=== PATIENT | male | born 1930 | race Caucasian/White ===

== ENCOUNTER 2016-06-06 20:09 | Inpatient (IN) | payer MEDICARE, BC ==
[~2016-06-06] VITALS: Ht 172.7 cm; Wt 76.0 kg
[2016-06-06] MEDS ORDERED: ALBUTEROL 0.083% (NEB) 2.5 MG/3 ML AMP HHN STA (20:38)
[2016-06-06] MEDS ORDERED: CEFEPIME 1GM/50 ML (PMX) 50 ML IVPB STA (20:38)
--- NOTE | 2016-06-06 21:00 | ERD ---
ER Documentation Chief Complaint Date/Time DATE: 06/06/16 TIME: 20:58 Chief Complaint Pt BIB RA zachery Proctor for pnuemonia. HPI Patient is an 85-year-old male who is vent dependent for chronic respiratory failure following aspiration pneumonia 3 months ago. The patient presents to the ER for gradual onset, mild to moderate, progressive shortness of breath over the last 3-4 days. The patient had a chest x-ray 2 days ago which was read yesterday as showing multifocal pneumonia. Patient denies fever, chest pain. He does report increased swelling to the lower extremities. He does state that he feels the need to cough but is not able to. Patient was treated with Levaquin by Dr. Colby, but family wanted the patient transferred to the ER for further evaluation. Patient has end-stage renal disease, last hemodialysis was last night. ROS All systems reviewed and are negative except as per history of present illness. Medications Home Meds Reported Medications Cholecalciferol* (Vitamin D3*) 1,000 Unit Tablet, 1000 UNIT GTB DAILY, TAB 06/06/16 Ascorbic Acid (Vitamin C) 250 Mg Tab, 250 MG GTB DAILY, TAB 06/06/16 Tramadol Hcl* (Ultram*) 50 Mg Tablet, 50 MG GTB Q4H Y for PAIN, TAB FOR PAIN LEVEL 8-10 AND PRIOR TO WOUND CARE 06/06/16 Sertraline Hcl* (Sertraline Hcl*) 25 Mg Tablet, 25 MG GTB QHS, #30 TAB 06/06/16 Multivit/Ca Carb/B Cmplx/Fa* (Natalia-Nuno*) 1 Tab Tab, 1 TAB GTB DAILY, TAB 06/06/16 Protein Supplement (Promod) 946 Ml Liquid, 30 ML GTB TID 06/06/16 Chlorhexidine Gluconate (Peridex) 473 Ml Mouthwash, 15 ML MM Q12H, BOTTLE 06/06/16 Ondansetron Hcl* (Ondansetron Hcl*) 4 Mg Tablet, 4 MG GTB Q4H Y for NAUSEA AND OR VOMITING, TAB 06/06/16 Polyethylene Glycol* (Miralax*) 17 Gm Powd.pack, 17 GM GTB DAILY, #30 PACKET 06/06/16 Metoprolol Tartrate* (Lopressor*) 25 Mg Tab, 12.5 MG GTB BID, #60 TAB HOLD IF SBP<110 OR HR<60 06/06/16 Melatonin (Melatonin) 5 Mg Tablet, 5 MG GTB HS, TAB 06/06/16 Hydrocodone Bit-Acetaminophen* (Lortab* Liq) 7.5 Mg-325 Mg/15 Ml Solution, 15 ML GTB Q6H Y for PAIN, ML 06/06/16 Lorazepam* (Lorazepam*) 0.5 Mg Tablet, 0.5 MG GTB Q12H Y for ANXIETY, TAB 06/06/16 Levofloxacin* (Levaquin*) 500 Mg Tablet, 500 MG GTB DAILY, TAB FOR 7 DAYS 06/07-06/1406/06/16 Lansoprazole* (Lansoprazole*) 30 Mg Capsule.dr, 30 MG GTB BID, CAP 06/06/16 Lactulose* (Lactulose*) 20 Gm/30 Ml Solution, 20 GM GTB Q24H, ML 06/06/16 Folic Acid (Fa-8) 0.8 Mg Tablet, 0.8 MG GTB DAILY, TAB 06/06/16 Ferrous Sulfate (Ferrous Sulfate) 300 Mg/5 Ml Liquid, 300 MG GTB DAILY 06/06/16 Ipratropium-Albuterol (Ipratropium-Albuterol) 0.5-3 Mg/3 Ml Ampul.neb, 3 ML INHALATION Q2H Y for PRN, #30 VIAL AND Q6H FOR SOB 06/06/16 Doxazosin Mesylate* (Doxazosin Mesylate*) 1 Mg Tablet, 1 MG GTB HS, TAB 06/06/16 Cyanocobalamin* (Vitamin B12*) 500 Mcg Tab, 1000 MCG GTB DAILY, TAB 06/06/16 Bumetanide* (Bumetanide*) 1 Mg Tablet, 1 MG GTB DAILY, TAB 06/06/16 Budesonide* (Budesonide*) 0.5 Mg/2 Ml Ampul.neb, 0.5 MG INHALATION BID, AMP 06/06/16 Brimonidine Tartrate* (Brimonidine Tartrate*) 0.15%-10ML Drop Opht, 1 DROP BOTH EYES BID, #1 EA 06/06/16 Amiodarone Hcl* (Amiodarone Hcl*) 200 Mg Tablet, 200 MG GTB DAILY, #30 TAB HOLD IF HR<60 3/28/17 Acetaminophen (MAPAP) 325 Mg/10.15 Ml Solution, 650 MG GTB Q4H Y for MILD PAIN LEVEL 1-3 FOR TEMP>101 06/06/16 Allergies Allergies: Coded Allergies: No Known Allergy (Unverified , 06/06/16) PMhx/Soc Past medical history: End-stage renal disease, chronic respiratory failure Past surgical history: Tracheostomy, G-tube Social history: No history of tobacco, no current alcohol FmHx Family History: No coronary disease, No diabetes Physical Exam Vitals Vital Signs Date Time Temp Pulse Resp B/P Pulse Ox O2 Delivery O2 Flow Rate FiO2 06/06/16 22:34 65 14 106/62 100 Room Air 06/06/16 20:45 90 16 94/60 100 Mechanical Ventilator 06/06/16 20:38 92 19 99 35 06/06/16 20:25 99.3 94 22 108/58 100 Physical Exam Const: Alert, no acute distress Head: Atraumatic Eyes: Normal Conjunctiva, no pallor or icterus ENT: Normal External Ears, Nose and Mouth. Moist mucous membranes Neck: Full range of motion. No JVD. No meningismus. Resp: Scattered bilateral rales, no wheezes Cardio: Regular rate and rhythm, no murmurs Abd: Soft, non tender, non distended. No pulsatile mass Skin: No petechiae or rashes Back: No midline or flank tenderness Ext: No cyanosis. Anasarca, with 3+ pitting edema to the abdominal wall. Neur: Awake and alert, cranial nerves II through XII intact bilaterally, strength and sensation intact in 4 extremities Psych: Normal Mood and Affect Result Diagram: 06/06/16209906/06/16 2100 Results 24 hrs Laboratory Tests Test 06/06/16 21:00 White Blood Count 7.010^3/ul Red Blood Count 2.4510^6/ul Hemoglobin 7.6g/dl Hematocrit 25.2% Mean Corpuscular Volume 102.9fl Mean Corpuscular Hemoglobin 31.0pg Mean Corpuscular Hemoglobin Concent 30.2g/dl Red Cell Distribution Width 19.3% Platelet Count 97188^3/UL Mean Platelet Volume 11.3fl Sodium Level 138mmol/L Potassium Level 3.4mmol/L Chloride Level 107mmol/L Carbon Dioxide Level 24mmol/L Anion Gap 10 Blood Urea Nitrogen 41mg/dl Creatinine 0.90mg/dl Glucose Level 91mg/dl Lactic Acid Level 0.6mmol/L Calcium Level 9.4mg/dl Total Bilirubin 0.0mg/dl Direct Bilirubin 0.00mg/dl Indirect Bilirubin 0.0mg/dl Aspartate Amino Transf (AST/SGOT) 34IU/L Alanine Aminotransferase (ALT/SGPT) 45IU/L Alkaline Phosphatase 231IU/L B-Type Natriuretic Peptide 77115HF/ML Total Protein 6.9g/dl Albumin 2.7g/dl Globulin 4.20g/dl Albumin/Globulin Ratio 0.64 Current Medications Medications (Trade) Dose Ordered Sig/Lata Route PRN Reason Start Time Stop Time Status Last Admin Dose Admin Albuterol 5 mg 5 mg ONCE STAT HHN 06/06/16 20:38 06/06/16 20:40 DC 06/06/16 21:35 Cefepime HCl (Maxipime 1gm/50 ml (Pmx)) 50 ml @ 100 mls/hr ONCE STAT IVPB 06/06/16 20:38 06/06/16 21:07 DC 06/06/16 21:34 Ondansetron HCl (Zofran Inj) 4 mg ER BRIDGE PRN IV NAUSEA AND/OR VOMITING 06/06/16 23:00 06/07/16 22:59 Acetaminophen (Tylenol Tab) 650 mg ER BRIDGE PRN PO MILD PAIN/FEVER 06/06/16 23:00 06/07/16 22:59 Procedures/MDM Chest x-ray:IMPRESSION: 1. Radiographic worsening of congestive heart failure and pulmonary edema pattern compared to 05/17/2016. 2. Interval increase in right larger than left pleural effusions. 3. Tracheostomy and right-sided Perma-Cath remain in good positions. 4. Aortic atherosclerosis is present. MDM: Patient with end-stage renal disease and chronic respiratory failure on ventilator set to ER for new pneumonia. Patient has not had any fever recorded , but has low-grade temp in the ER. His main symptom is increased shortness of breath and oxygen requirement. Patient has signs of anasarca on exam, and it has end-stage renal disease causing fluid retention. Chest x-ray shows pleural effusions and pulmonary edema, and cannot exclude concurrent pneumonia. Patient had received Levaquin prior to ER arrival. Given cefepime for double coverage of Pseudomonas in the setting of possible ventilator associated pneumonia. Patient found to have anemia with hemoglobin of 7.6, due to end- stage renal disease. I believe the patient will benefit from additional dialysis and transfusion of 1 unit of blood. Lactic acid is not elevated, and there are no signs of sepsis. Blood cultures were sent. Case discussed with Dr. Harris, who will admit patient for further workup and treatment. Departure Diagnosis: Primary Impression: Anasarca Additional Impressions: End stage renal disease Pulmonary edema with congestive heart failure Chronic respiratory failure Ventilator associated pneumonia Pleural effusion Condition: Stable SHAI STROUD MD Jun 06, 2016 21:00
[2016-06-06 21:14] LABS: ADD SCAN DIFF NO
[2016-06-06 21:21] LABS: ABNORMAL IP MESSAGE 1; HEMATOCRIT 25.2 % (42.0-52.0); HEMOGLOBIN 7.6 g/dl (14.0-18.0); MEAN CORPUSCULAR HGB CONC 30.2 g/dl (32.0-37.0); MEAN CORPUSCULAR VOLUME 102.9 fl (82.0-101.0); MEAN PLATELET VOLUME 11.3 fl (7.4-10.4); PLATELET COUNT 119 10^3/UL (140-415); RED BLOOD COUNT 2.45 10^6/ul (4.70-6.10); RED CELL DISTRIBUTION WIDTH 19.3 % (11.5-14.5)
[2016-06-06 21:37] LABS: ALBUMIN 2.7 g/dl (3.3-4.9)
[2016-06-06 21:38] LABS: POTASSIUM 3.4 mmol/L (3.5-5.1)
[2016-06-06] MEDS ORDERED: ACET325S17 GTB (21:39)
[2016-06-06 21:40] LABS: ALBUMIN/GLOBULIN RATIO 0.64; CREATININE 0.9 mg/dl (0.61-1.24); TOTAL PROTEIN 6.9 g/dl (6.1-8.1)
[2016-06-06] MEDS ORDERED: BRIM10DR12 BOTH EYES (21:40)
[2016-06-06] MEDS ORDERED: AMIO200T2 GTB (21:40)
[2016-06-06 21:41] LABS: CALCIUM 9.4 mg/dl (8.4-10.2)
[2016-06-06] MEDS ORDERED: BUME1TAB18 GTB (21:41)
[2016-06-06] MEDS ORDERED: BUDE0.5A INHALATION (21:41)
[2016-06-06] MEDS ORDERED: CYAN500T46 GTB (21:42)
[2016-06-06] MEDS ORDERED: IPRA3AMP INHALATION (21:43)
[2016-06-06] MEDS ORDERED: DOXA1TAB GTB (21:43)
[2016-06-06] MEDS ORDERED: UDFER GTB (21:45)
[2016-06-06] MEDS ORDERED: FOL8 GTB (21:48)
--- NOTE | 2016-06-06 21:48 | RADRPT ---
PROCEDURE: XR Chest. CLINICAL INDICATION: Shortness of breath. TECHNIQUE: Portable AP semi supine view of the chest was obtained. COMPARISON: 05/17/2016 FINDINGS: The cardiomediastinal silhouette is mildly enlarged. Tracheostomy and right-sided Perma-Cath remain in good positions. Diffuse pulmonary edema pattern asymmetrically effect in the right greater than left lung is slightly worse. Right large left pleural effusions have slightly increased since the prior exam. Demineralization is again noted without evidence of acute osseous abnormality. Calcific ation of the aorta is again noted RPTAT:HJJR IMPRESSION: 1. Radiographic worsening of congestive heart failure and pulmonary edema pattern compared to 05/17. 2. Interval increase in right larger than left pleural effusions. 3. Tracheostomy and right-sided Perma-Cath remain in good positions. 4. Aortic atherosclerosis is present. Physician Ama Date Time Electronically viewed and signed by Physician Ama on 06/06/2016 21:48 JR/
[2016-06-06] MEDS ORDERED: LACT20SO2 GTB (21:49)
[2016-06-06] MEDS ORDERED: LANS30CA GTB (21:50)
[2016-06-06] MEDS ORDERED: LEVO500T72 GTB (21:51)
[2016-06-06] MEDS ORDERED: LORA0.5T GTB (21:52)
[2016-06-06] MEDS ORDERED: HYDR15SO8 GTB (21:53)
[2016-06-06] MEDS ORDERED: MELA5TAB4 GTB (21:54)
[2016-06-06] MEDS ORDERED: METO-448 GTB (21:55)
[2016-06-06] MEDS ORDERED: POLY17PO6 GTB (21:55)
[2016-06-06] MEDS ORDERED: ONDA4TAB95 GTB (21:56)
[2016-06-06] MEDS ORDERED: CHLO473M4 MM (21:57)
[2016-06-06] MEDS ORDERED: PROT946L GTB (21:58)
[2016-06-06] MEDS ORDERED: SERT25TA83 GTB (21:59)
[2016-06-06] MEDS ORDERED: NEPH GTB (21:59)
[2016-06-06] MEDS ORDERED: TRAM-40 GTB (22:01)
[2016-06-06] MEDS ORDERED: ASC250 GTB (22:02)
[2016-06-06] MEDS ORDERED: CHOL100062 GTB (22:03)
[2016-06-06 22:52] LABS: EOSINOPHILS # 0.2 10^3/ul (0.0-0.5); LYMPHOCYTES # 0.5 10^3/ul (0.8-2.9); MONOCYTE # 0.6 10^3/ul (0.3-0.9); NEUTROPHIL # 5.7 10^3/ul (1.6-7.5); PLATELET ESTIMATE PLT APPEAR DECREASED
[2016-06-06] MEDS ORDERED: ACETAMINOPHEN 325 MG TAB PO PRN (23:00)
[2016-06-06] MEDS ORDERED: ONDANSETRON 4 MG INJ IV PRN (23:00)
[2016-06-07] MEDS ORDERED: ONDANSETRON 4 MG TAB GTB PRN (10:00)
[2016-06-07] MEDS ORDERED: POTASSIUM CHLORIDE 20 MEQ POWDER FOR ORAL SOLN GTB ONE (10:00)
[2016-06-07] MEDS ORDERED: ACETAMINOPHEN 325/HYDROC 7.5 15 ML CUP GTB PRN (10:00)
[2016-06-07] MEDS ORDERED: ALBUTEROL/IPRATROPIUM (NEB) 3 ML AMP NEB PRN (10:00)
--- NOTE | 2016-06-07 10:53 | CONS ---
DATE OF ADMISSION: 06/06/2016 DATE OF CONSULTATION: 06/07/2016 REFERRING PHYSICIAN: Dr. Aranda. REASON FOR CONSULTATION: Atrial fibrillation. CHIEF COMPLAINT: Worsening pneumonia, respiratory failure. HISTORY OF PRESENT ILLNESS: Thank you for this referral. History obtained from the extensive revie w of the old chart, discussion with physician and staff. The patient also known to me from previous admission to different hospital, [facility]. This unfortunate 85-year-old gentleman with hist ory of respiratory failure, status post tracheostomy, on the vent, history of paroxysmal atrial fibr illation that has become persistent atrial fibrillation, previously on anticoagulation, but currentl y off of it due to bleeding who has had worsening and increasing shortness of breath over the past f ew days. The patient's chest x-ray showed pneumonia and he has been started on Levaquin; however, h as failed outpatient/[facility] antibiotic and has been transferred to the emergency room for furt her workup or antibiotic. The patient denies any chest pain or pressure to me. Denies any palpitat ions to me. Currently on the vent and can discuss limited information to me. The patient has been coughing and has increasing phlegm production, apparently. No chest pain or pressure, palpitation. PAST MEDICAL HISTORY: History of hypoxemic respiratory failure, status post tracheostomy, vent depe ndent, history of COPD, history of mild aortic stenosis, atrial fibrillation previously paroxysmal, currently has become persistent, history of GI bleed, hypertension, and renal failure on dialysis. MEDICATIONS: Prior to admission her medication reconciliation was personally and extensively review ed. PAST SURGICAL HISTORY: Status post dialysis access placement, tracheostomy, G-tube placement. SOCIAL HISTORY: Does not smoke or drink at this point. Previously has been a smoker, apparently. FAMILY HISTORY: No reported coronary artery disease. ALLERGIES: NO REPORTED DRUG ALLERGIES. REVIEW OF SYSTEMS: The patient is bed bound on the trach, on the vent. Otherwise negative except f or above-mentioned. PHYSICAL EXAMINATION: VITAL SIGNS: Temperature 98.3, heart rate of 92, blood pressure 196/56, respiratory rate of 16. HEENT: Normocephalic, atraumatic. Saturating 100%. Thin, cachectic gentleman. EYES: Pupils are equal and round. NECK: Status post tracheostomy, on the vent. CARDIOVASCULAR: Irregularly irregular. Systolic ejection murmur. PULMONARY: Mild rhonchi, diffuse. GASTROINTESTINAL: Soft, status post PEG placement. No rebound, no guarding. EXTREMITIES: With trivial lower extremity edema. NEUROLOGIC: Awake, responds appropriately. PSYCHIATRIC: Appears to be calm but pleasant. DERMATOLOGIC: Diffuse ecchymosis throughout the body noted. PSYCHIATRIC: Calm and very pleasant. LABORATORY: WBC of 7, hemoglobin 7.6, platelet of 119. Sodium 138, potassium 3.4, BUN of 41, creat inine 0.9, glucose of 91, proBNP of 13,600. Albumin is 2.6. TSH in April was 1.23 per review of the old chart. Most recent OB stool was positive on 04/29/2016. Digoxin level on the 2nd was 0.7. IMAGING: Chest x-ray last night read by radiologist showed worsening of congestive heart failure, p ulmonary edema pattern compared to before, interval increase the right larger than left pleural effu henok. Review of the old chart again showed echocardiogram on 04/25/2016 and showed ejection fraction of 60 %. Trace MR, trace aortic insufficiency. Aortic valve area was calculated at 2.2 cm2. Dilated IVC . PA pressure of 52 mmHg. ASSESSMENT AND PLAN: 1. Hypoxemia respiratory failure, status post tracheostomy, vent dependent. 2. Possible pneumonia. 3. Congestive heart failure/fluid overload secondary to diastolic dysfunction. 4. Renal failure on dialysis. 5. Atrial fibrillation, currently heart rate under good control. 6. Severe anemia. 7. History of OB positive stool, unable to anticoagulate. 8. History of hypertension, currently hypotensive. 9. Renal failure on dialysis. 10. Malnutrition. 11. Dysphagia, status post PEG placement. RECOMMENDATIONS: 1. Vent support will be continued. Antibiotic is managed as per pulmonary and internal medicine. We will continue the amiodarone for now. 2. Diuresis as per renal given his renal failure. 3. Beta brunilda as tolerated will be continued. I will check a digoxin level tomorrow and as neede d will be given an extra dose of digoxin to control the heart rate better. 4. Anticoagulation is still on hold due to concern about bleeding. I am going to order a stool gua iac as well to rule out any bleeding signs. 5. Will monitor closely on the telemetry. We will continue to follow along with you. Dictated By: TYREL RODRIGUEZ MD AV/ANA Conf#: [id number] DID#: [id number] CC: MARINO ARANDA DO;*[facility]*
--- NOTE | 2016-06-07 11:02 | HP ---
DATE OF ADMISSION: 06/06/2016 CHIEF COMPLAINT: Pneumonia, volume overload. HISTORY OF PRESENT ILLNESS: This is an 85-year-old male with a past medical history of dependent re spiratory failure, history of end-stage renal disease on hemodialysis, history of hypertension, hist ory of BPH, history of CHF, coronary artery disease, history of AFib, who presents to [facility] from halfway facility due to progressive shortness of breath over the last 2 to 3 days. The patient previously was admitted to [facility] for over 1 month. At t hat time, the patient was being treated for aspiration pneumonia and on undergoing vent management. He was eventually discharged back to halfway facility approximately 2 to 3 weeks ago. The patient now presents with worsening shortness of breath as stated above. The patient had a chest x -ray 2 days ago at his [facility] showed multifocal pneumonia. He has been treated with antibiotic therapy but failed outpatient evaluation. The patient also noted to have worsening lowe r extremity edema as a result was brought into the [facility] for evaluation. In the emergency room, the patient had a chest x-ray which showed findings of worsening CHF, pulmonary edema, right pleural effusion. The patient in the emergency room was given IV antibiotics. There h ave been no reports of any hemoptysis, hemetemesis or hematochezia. No other acute events noted. PAST MEDICAL HISTORY: As stated above, history of end-stage renal disease, history of ventilator de pendent respiratory failure, history of CHF, history of chronic disease, history of arrhythmia, hist ory of encephalopathy, anxiety disorder, BPH. ALLERGIES: NO KNOWN DRUG ALLERGIES. PAST SURGICAL HISTORY: Status post trach, status post PEG, status post PermCath placement. SOCIAL HISTORY: No alcohol or drug use. Lives in a subacute facility. FAMILY HISTORY: No family history of kidney disease or heart disease. MEDICATIONS: Reviewed and reconciled. REVIEW OF SYSTEMS: Unable to do adequate review of systems. Patient's pertinent and positives state s in HPI, otherwise the site. PHYSICAL EXAMINATION: VITAL SIGNS: Blood pressure 101/60, respirations 16, pulse 90, temperature 98.3. HEENT: Head is normocephalic. NECK: Shows trach. HEART: Irregularly irregular. LUNGS: Show diminished breath sounds at the base. Positive crackles and rhonchi. CHEST: Positive Perm-A-Cath. ABDOMEN: Soft, nontender to palpation. Positive PEG. EXTREMITIES: Negative for clubbing, cyanosis. Positive edema. DERMATOLOGIC: No rashes. MUSCULOSKELETAL: Positive wound. NEUROLOGIC: No obvious focal deficits, although, exam is somewhat limited due to lack of patient co operation. LABORATORY DATA: Shows sodium 138, potassium 2.4, chloride 107, BUN 41, creatinine 0.90, glucose 23 1. BNP 13,000. White count 7.9, hemoglobin 7.6, hematocrit 25.2, platelet count 190. IMAGING STUDIES: As stated in HPI. ASSESSMENT AND PLAN: This is an 85-year-old male who presents with: 1. Acute systolic, diastolic heart failure. Etiology is secondary to end-stage renal disease. Mo n at this point is to intensify patient's dialysis. We will dialyze daily for volume removal. We w ill also place a cardiology consult with Dr. St for evaluation. Monitor closely. 2. End-stage renal disease. The patient on dialysis Sunday, Sunday, Sunday. Anticipate dialysi s today for 3 hours, 4K bath, calcium 2.5, ultrafiltrate as tolerated. 3. Possible healthcare-associated pneumonia. The patient is currently on Levaquin received 1 dose of cefepime. We will place an ID consult with Dr. Mcgrath for evaluation. We will check blood cultu res, calcitonin level procalcitonin level, lactic acid level and monitor closely. 4. Anemia, likely of chronic disease. We will check an iron panel, stool occult blood. We will gi ve Epogen with hemodialysis. Monitor H and H levels, transfuse as needed. 5. Mineral bone disorder. We will monitor calcium and phosphorus levels. Defer phosphorus binders at this time. 6. History of hypertension. Patient is currently hypotensive to normotensive. Will monitor closel y and will monitor hemodynamics with ultrafiltration. 7. Atrial fibrillation, currently rate controlled. Continue current medical management and follow up with cardiology. 8. Acute on chronic encephalopathy, etiology toxic metabolic. Continue to monitor. 9. Hypokalemia, replete potassium chloride. 10. Decubitus wound. Place wound care consult for evaluation. 11. Ventilator dependent respiratory failure. Vent settings reviewed. We will place a pulmonary c onsult for evaluation, consider checking an ABG. 12. Anxiety disorder. Continue Ativan. 13. Gastrointestinal and deep venous thrombosis prophylaxis. Continue with Prevacid and sequential leg squeezers. 14. Depression. Continue Zoloft. Dictated By: MARINO MATHUR/ANA Conf#: [id number] DID#: [id number]
--- NOTE | 2016-06-07 11:05 | CONS ---
Date/Time of Note Date/Time of Note DATE: 06/07/16 TIME: 11:00 Assessment/Plan Assessment/Plan Additional Assessment/Plan Ventilator settings; AC of 12, tidal volume 500, PEEP of 5, 35% FiO2. Chest x-ray was reviewed from yesterday which is showing bilateral pneumonia more pronounced in the right lung. Possibly alleviate some element of pulmonary edema. Assessment and recommendations; next 1. Patient admitted for bilateral pneumonia possibly some element of pulmonary edema as well. 2. Chronic respiratory failure, ventilator dependent. 3. Chronic atrial fibrillation. 4. End-stage renal disease on hemodialysis. Continue current treatment. Patient is on an optimal treatment regimen. Continue current antibiotics. Obtain follow-up chest x-ray in 48 hours. Consultation Date/Type/Reason Admit Date/Time Date of Consultation: Jun 07, 2016 Type of Consultation: Pulmonary/critical care Reason for Consultation Pulmonary consultation obtained for evaluation of chronic respiratory failure, patient admitted for bilateral pneumonia. Next History presenting; patient is a 85-year-old white male who is a resident of [facility] the patient was sent over to the ER yesterday with complaints of being short of breath. Upon evaluation a chest x-ray was done which is showing severe bilateral pneumonia possibly with some element of congestive heart failure. By the time I saw the patient and ER the patient is quite awake alert despite being on ventilator able to move all 4 extremities and was able to communicate by hand movements and lip movements. Denies any further shortness of breath. Any chest pain. Any nausea or vomiting. Also denies any abdominal pain. Past medical history; 1. Patient with history of chronic respiratory failure, ventilator dependent. 2. Chronic renal failure on hemodialysis. 3. History of atrial fibrillation. 4. Anemia. 5. G-tube placement. 6. History of tracheostomy. Medications; were reviewed. Allergies; are none. Social history, family history, occupational history is noncontributory. Review of systems; limited review of systems could be obtained. Patient denies any headache, any chest pain, shortness of breath is improving. Denies any chest pain, fever, abdominal pain, vomiting. General exam; elderly male, on ventilator via tracheostomy awake and alert currently in no distress. Social History Smoking Status: Never smoker Exam/Review of Systems Vital Signs Vitals Vital Signs Date Time Temp Pulse Resp B/P Pulse Ox O2 Delivery O2 Flow Rate FiO2 06/07/16 10:33 98.3 89 16 110/54 100 Mechanical Ventilator 06/07/16 05:50 35 Exam HEENT examination; supple neck, positive JVD. No lymphadenopathy. Midline trachea. No thyromegaly. Patient is edentulous. Bilateral cataracts. No neck masses. No lymphadenopathy. No thyromegaly. Tracheostomy in place with clean insertion site. Chest examination; diminished but clear breath sounds bilaterally. S1-S2 audible, no murmurs irregular rhythm. Abdomen examination; soft, no organomegaly. Nontender. G-tube in place. Bowel sounds audible. Extremity examination; trace upper extremity edema bilaterally multiple ecchymoses are present in all 4 extremities. PROGRAM SERVICES ASSISTANT examination [facility]: Patient awake alert follows simple commands and moves all 4 extremities. Results Result Diagram: 06/06/16 2100 06/06/16 2100 Results 24 hrs Laboratory Tests Test 06/06/16 21:00 White Blood Count 7.0 Red Blood Count 2.45 L Hemoglobin 7.6 L Hematocrit 25.2 L Mean Corpuscular Volume 102.9 H Mean Corpuscular Hemoglobin 31.0 Mean Corpuscular Hemoglobin Concent 30.2 L Red Cell Distribution Width 19.3 H Platelet Count 119 L Mean Platelet Volume 11.3 H Neutrophils % 82.0 H Lymphocytes % 7.0 L Monocytes % 8.0 Eosinophils % 3.0 Neutrophils # 5.7 Lymphocytes # 0.5 L Monocytes # 0.6 Eosinophils # 0.2 Platelet Estimate PLT APPEAR DECREASED Sodium Level 138 Potassium Level 3.4 L Chloride Level 107 Carbon Dioxide Level 24 Anion Gap 10 Blood Urea Nitrogen 41 H Creatinine 0.90 Glucose Level 91 Lactic Acid Level 0.6 Calcium Level 9.4 Total Bilirubin 0.0 L Direct Bilirubin 0.00 Indirect Bilirubin 0.0 Aspartate Amino Transf (AST/SGOT) 34 Alanine Aminotransferase (ALT/SGPT) 45 Alkaline Phosphatase 231 H B-Type Natriuretic Peptide 36616 H Total Protein 6.9 Albumin 2.7 L Globulin 4.20 H Albumin/Globulin Ratio 0.64 Medications Medications Current Medications Amiodarone HCl (Cordarone) 200 mg DAILY GTB ; Start 06/08/16 at 09:00; Status UNV Ascorbic Acid (Vitamin C) 250 mg DAILY GTB ; Start 06/08/16 at 09:00; Status UNV Brimonidine Tartrate (Alphagan P 0.15%) 1 drop BID BOTH EYES ; Start 06/07/16 at 21:00; Status UNV Budesonide (Pulmicort (Neb)) 0.5 mg BID NEB ; Start 06/07/16 at 21:00; Status UNV Bumetanide (Bumex) 1 mg DAILY GTB ; Start 06/08/16 at 09:00; Status UNV Chlorhexidine Gluconate (Peridex) 15 ml Q12H MM ; Start 06/07/16 at 10:00 Cholecalciferol (Vitamin D) 1,000 unit DAILY GTB ; Start 06/08/16 at 09:00; Status UNV Cyanocobalamin (Vitamin B12) 1,000 mcg DAILY GTB ; Start 06/08/16 at 09:00; Status UNV Doxazosin Mesylate (Cardura) 1 mg HS GTB ; Start 06/07/16 at 21:00; Status UNV Ferrous Sulfate (Feosol Liquid Cup) 300 mg DAILY GTB ; Start 06/08/16 at 09:00; Status UNV Acetaminophen/ Hydrocodone Bitart (Lortab Liq) 15 ml Q6H PRN GTB PAIN; Start at 10:00 Albuterol/ Ipratropium (Duoneb) 3 ml Q2H PRN NEB PRN; Start 06/07/16 at 10:00 Lactulose (Enulose) 20 gm Q24H GTB ; Start 06/07/16 at 10:00 Lansoprazole (Prevacid) 30 mg BID GTB ; Start 06/07/16 at 21:00; Status UNV Levofloxacin (Levaquin) 500 mg DAILY GTB ; Start 06/08/16 at 09:00; Status UNV Lorazepam (Ativan) 0.5 mg Q12H PRN GTB ANXIETY; Start 06/07/16 at 10:00 Metoprolol Tartrate (Lopressor) 12.5 mg BID GTB ; Start 06/07/16 at 21:00; Status UNV Multivit/Ca Carb/ B Cmplx/FA/Prenat (Natalia-Nuno) 1 tab DAILY GTB ; Start at 09:00; Status UNV Ondansetron HCl (Zofran Tab) 4 mg Q4H PRN GTB NAUSEA AND/OR VOMITING; Start at 10:00; Status UNV Polyethylene Glycol (Miralax) 17 gm DAILY GTB ; Start 06/08/16 at 09:00; Status UNV Sertraline HCl (Zoloft) 25 mg QHS GTB ; Start 06/07/16 at 21:00; Status UNV Tramadol HCl (Ultram) 50 mg Q4H PRN GTB PAIN; Start 06/07/16 at 10:00 Miscellaneous Information 650 mg Q4H PRN GTB MILD PAIN LEVEL 1-3; Start at 10:00; Status UNV Miscellaneous Information 0.8 mg DAILY GTB ; Start 06/08/16 at 09:00; Status UNV GRANT ROBERTS Jun 07, 2016 11:05
[2016-06-07] MEDS: LACTULOSE 30ML CUP GTB SCH (11:26)
[2016-06-07] MEDS: CHLORHEXIDINE GLUCONATE 15 ML UD CUP MM SCH (11:28)
[2016-06-07 13:44] LABS: ADD SCAN DIFF NO
[2016-06-07 13:47] LABS: ABNORMAL IP MESSAGE 1; BASOPHILS % 0.3 % (0.0-2.0); EOSINOPHILS # 0.2 10^3/ul (0.0-0.5); EOSINOPHILS % 2.6 % (0.0-7.0); HEMATOCRIT 24.9 % (42.0-52.0); HEMOGLOBIN 7.6 g/dl (14.0-18.0); LYMPHOCYTES # 0.5 10^3/ul (0.8-2.9); LYMPHOCYTES % 7.5 % (15.0-51.0); MEAN CORPUSCULAR HEMOGLOBIN 31.4 pg (29.0-33.0); MEAN CORPUSCULAR HGB CONC 30.5 g/dl (32.0-37.0); MEAN CORPUSCULAR VOLUME 102.9 fl (82.0-101.0); MEAN PLATELET VOLUME 10.7 fl (7.4-10.4); MONOCYTE # 0.6 10^3/ul (0.3-0.9); MONOCYTES % 8.4 % (0.0-11.0); NEUTROPHIL # 5.3 10^3/ul (1.6-7.5); NEUTROPHILS % 80.7 % (39.0-77.0); PLATELET COUNT 124 10^3/UL (140-415); RED BLOOD COUNT 2.42 10^6/ul (4.70-6.10); RED CELL DISTRIBUTION WIDTH 19.6 % (11.5-14.5); WHITE BLOOD COUNT 6.5 10^3/ul (4.8-10.8)
[2016-06-07 14:06] LABS: IRON 37 ug/dl (35-150)
[2016-06-07 14:15] LABS: TOTAL IRON BINDING CAPACITY 166 ug/dl (241-421)
--- NOTE | 2016-06-07 15:07 | CONS ---
DATE OF ADMISSION: 06/06/2016 DATE OF CONSULTATION: 06/07/2016 TYPE OF CONSULTATION: Infectious Disease. REASON FOR CONSULTATION: Antibiotic management. HISTORY OF PRESENT ILLNESS: Sedrick Wilkinson is an 85-year-old male who comes in with pneumonia and fluid overload. His past problems include: 1. End-stage renal disease on hemodialysis. 2. History of ventilator-dependent respiratory failure. 3. Coronary artery disease with CHF. 4. Cardiac arrhythmia. 5. Encephalopathy. 6. Anxiety disorder. 7. Benign prostatic hypertrophy. 8. Status post tracheostomy. 9. Status post G-tube placement. 10. Status post PermCath placement. 11. History of atrial fibrillation. The patient presents from shelter facility with progressive shortness of breath. He was alis ated for aspiration pneumonia and ongoing ventilator dependent respiratory failure. He was in SNF, but he developed worsening shortness of breath. Chest x-ray 2 days prior to admission showed multif ocal pneumonia. He was treated with antibiotic therapy but failed. He is noted to have worsening l ower extremity edema and was brought into [facility] for evaluation. Chest x-ray showed worsening CHF, pulmonary edema, right pleural effusion. On admission, his BUN and creatinine were 41/0.9. White count was 7.9, H and H of 7.6 and 25.2, platelet count 190,000. PAST MEDICAL HISTORY: Operations as outlined. FAMILY HISTORY: Noncontributory. SOCIAL HISTORY: He lives in a subacute. He does not drink or abuse drugs. ALLERGIES: NONE TO PENICILLIN, SULFA, OR FOODS. MEDICATIONS: Per chart. REVIEW OF SYSTEMS: As per HPI. PHYSICAL EXAMINATION: GENERAL: The patient is a chronically ill-appearing male who is encephalopathic, in no acute distre ss. VITAL SIGNS: Stable. He is afebrile. SKIN: Without generalized rash. HEENT: Within normal limits. NECK: He has a tracheostomy in place without discharge. Neck is movable. LYMPH NODES: None palpable. CHEST: Decreased breath sounds at both bases with occasional rales and rhonchi. HEART: Irregularly irregular rhythm. THORAX: Positive PermCath. ABDOMEN: Soft, nontender, without organosplenomegaly or masses. He has a G-tube in place without e rythema or induration. EXTREMITIES: Without cyanosis, clubbing. He has 1+ edema. RECTAL AND GENITAL: Deferred. NEUROLOGIC: The patient is encephalopathic and has no focal neurological abnormalities. IMPRESSION AND PLAN: The patient has numerous problems as previously noted. He has possible health care-associated pneumonia. He received a dose of Levaquin and 1 dose of cefepime. A procalcitonin level was ordered as well as lactic acid. Blood cultures were ordered, and these are pending. Ches t x-ray showed worsening of congestive heart failure and pulmonary edema, interval increase in right larger than left pleural effusion, tracheostomy, and right-sided PermCath in good position. The jaycob gomez was also seen by Dr. Flanagan in pulmonary consultation. The x-ray showed bilateral pneumonia, m ore pronounced in the right lung. The patient was admitted with bilateral pneumonia as well as pulm onary edema. We will continue him on current medications, Levaquin and cefepime. The cefepime was stopped, and Levaquin was continued. We will see how he does on this regimen. I will dictate my fi ndings to Dr. Aranda and Dr. Flanagan. Dictated By: JESÚS LOPEZ MD, JD/ANA Conf#: [id number] DID#: [id number]
[2016-06-07 18:15] VITALS: TEMP 98.7
[2016-06-07] MEDS: BUDESONIDE (NEB) 0.5MG/2ML AMP NEB SCH (20:00)
[2016-06-07] MEDS: LANSOPRAZOLE 30 MG CAP GTB SCH (21:00)
[2016-06-07] MEDS: BRIMONIDINE 0.15% 5 ML OPH BOTH EYES SCH (21:00)
[2016-06-07 22:00] VITALS: Ht 172.7 cm; Wt 76.0 kg
[2016-06-07 23:35] VITALS: RESP 19
[2016-06-08] VITALS (31 sets, daily range): BP systolic 89–117; BP diastolic 43–64; PULSE 84–95; RESP 12–24
[2016-06-08] MEDS: BUDESONIDE (NEB) 0.5MG/2ML AMP NEB SCH ×3 (00:25→19:25)
[2016-06-08] MEDS: DOXAZOSIN 1 MG TAB GTB SCH ×2 (02:03→20:23)
[2016-06-08] MEDS: CHLORHEXIDINE GLUCONATE 15 ML UD CUP MM SCH ×3 (02:03→20:23)
[2016-06-08] MEDS: SERTRALINE 50 MG TAB GTB SCH ×2 (02:04→20:23)
[2016-06-08] MEDS: METOPROLOL 25 MG TAB GTB SCH ×3 (02:05→20:23)
--- NOTE | 2016-06-08 08:20 | PN ---
DATE: 06/08/2016 SUBJECTIVE: The patient is stable, no acute events noted. No fever, chills, nausea, vomiting. No shortness of breath. OBJECTIVE: VITAL SIGNS: Blood pressure is 110/64, respirations 20, pulse 75, temperature 98.8. HEENT: Head is normocephalic. NECK: Shows trach. HEART: Regular rate. LUNGS: Show diminished breath sounds at the base. Positive crackles. ABDOMEN: Soft, nontender to palpation without rebound or guarding. EXTREMITIES: Negative for clubbing, cyanosis. Positive edema. DERMATOLOGIC: No rashes. MUSCULOSKELETAL: No joint effusions. NEUROLOGIC: No change in exam. The has a wound. LABORATORY DATA: Shows a white count 6.5, hemoglobin 7.6, hematocrit 24.9, platelet count is 124. BMP is currently pending. The patient has an iron saturation of 22 and a ferritin level of 624. ASSESSMENT AND PLAN: 1. Ventilator-dependent respiratory failure. Vent settings have been reviewed. Continue to monito r. Follow up with Pulmonary. Consider checking an ABG. 2. Acute diastolic heart failure. The patient remains decompensated. Will continue ultrafiltratio n dialysis. Follow up with cardiology. 3. End-stage renal disease. The patient is on dialysis Sunday, Sunday, Sunday. Anticipate moncho y dialysis for solute clearance and volume removal. Plan for dialysis today. 4. Possible healthcare-associated pneumonia, possible sepsis. The patient is currently on Levaquin and cefepime. Blood cultures have been sent. We will follow up with Infectious Disease, Dr. Lilly hernandez, for further recommendations. 5. MS of chronic disease. The patient's iron panel shows iron replete. Will intensify Epogen. Wi ll give blood transfusions as needed. 6. Mineral bone disorder. Continue to monitor calcium and phosphorus levels. 7. Hypertension. The patient is now high normotensive. Will continue to monitor. 8. Atrial fibrillation, currently rate controlled. Continue medical management. The patient is ab le to tolerate anticoagulation due to previous history of gastrointestinal bleed. 9. Acute on chronic encephalopathy. Etiology is toxic metabolic. Continue to monitor. 10. Decubitus wound. Continue wound care. 11. Anxiety disorder. Continue Ativan. 12. Depression. Continue Zoloft. 13. Hypokalemia post potassium chloride supplementation. 14. Gastrointestinal and deep venous thrombosis prophylaxis. Continue with Prevacid and sequential leg squeezers. Please note I spent over 25 minutes in [id number] time with the patient's family, at bedside. The patient is full code. Dictated By: MARINO MATHUR/ANA Conf#: [id number] DID#: [id number]
[2016-06-08] MEDS: CHOLECALCIFEROL 1,000 UNIT TAB GTB SCH (08:26)
[2016-06-08] MEDS: ASCORBIC ACID 250 MG TAB GTB SCH (08:26)
[2016-06-08] MEDS: MULTIVIT/CA CARB/B CMPLX/FA TAB GTB SCH (08:26)
[2016-06-08] MEDS: FOLIC ACID 0.4 MG TAB PO SCH (08:26)
[2016-06-08] MEDS: LANSOPRAZOLE 30 MG CAP GTB SCH ×2 (08:26→20:23)
[2016-06-08] MEDS: LEVOFLOXACIN 500 MG TAB GTB SCH (08:26)
[2016-06-08] MEDS: AMIODARONE 200 MG TAB GTB SCH (08:27)
[2016-06-08] MEDS: CYANOCOBALAMIN 500 MCG TAB GTB SCH (08:27)
[2016-06-08] MEDS: traMADol 50 MG TAB GTB PRN ×2 (08:27→20:23)
[2016-06-08] MEDS: FERROUS SULFATE 60 MG/ML 5ML CUP GTB SCH (08:27)
[2016-06-08] MEDS: BRIMONIDINE 0.15% 5 ML OPH BOTH EYES SCH ×2 (08:28→20:24)
[2016-06-08] MEDS ORDERED: BUMETANIDE 1 MG TAB GTB SCH (09:00)
[2016-06-08] MEDS ORDERED: POLYETHYLENE GLYCOL 17 GM PACKET GTB SCH (09:00)
--- NOTE | 2016-06-08 09:10 | PN ---
DATE: 06/08/2016 CARDIOLOGY FOLLOWUP PROGRESS NOTE SUBJECTIVE: Discussed with the staff. Rhythm strip was reviewed. The patient remains in atrial fi brillation. Heart rate has remained overall stable. The patient complains of shortness of breath. Still on the vent. No chest pain or pressure. No palpitation reported. No active bleeding report ed. MEDICATIONS: Reviewed, which include: 1. Amiodarone 200 mg daily. 2. Bumex. 3. Iron. 4. Levaquin. 5. Multivitamin 6. Folic acid. 7. Cefepime. 8. Metoprolol 12.5. PHYSICAL EXAMINATION: VITAL SIGNS: Temperature 98.8, heart rate of 88, blood pressure 96/43, respiratory rate of 20. HEENT: Normocephalic, atraumatic, thin, cachectic gentleman. HEENT: Pupils equal and round. Pupils are reactive to light. NECK: Supple, tracheostomy, on the vent. CARDIOVASCULAR: Irregularly irregular. Systolic ejection murmur. PULMONARY: With mild rhonchi, diffuse. No wheezes. GASTROINTESTINAL: Soft, thin, nontender. EXTREMITIES: Positive bilateral lower extremity edema. NEUROLOGIC: Awake and alert. Responds appropriately. PSYCHIATRIC: Appears to be anxious, but very pleasant. DERMATOLOGIC: Diffuse ecchymosis throughout the body. LABORATORY: Iron was 37, TIBC of 166. ProBNP of 13,600. ASSESSMENT AND PLAN: 1. Hypoxic respiratory failure, status post tracheostomy, ventilator dependent. 2. Atrial fibrillation, now has become persistent or chronic, most likely. On heart rate control, unable to anticoagulate due to history of bleeding and severe anemia. 3. Possible pneumonia. 4. Fluid overload and congestive heart failure secondary to diastolic dysfunction and renal failure acute on chronic. 5. Severe anemia. 6. Renal failure, on dialysis now. 7. History of hypertension, currently has remained hypotensive. 8. Dysphagia status post percutaneous endoscopic gastrostomy placement. 9. Chronic obstructive pulmonary disease. 10. Malnutrition and low albumin level. RECOMMENDATIONS: We will continue the vent support. We will continue with the amiodarone for now, but if within the next 24 hours the patient remains in atrial fibrillation and does not come back in sinus, we will discontinue it. Heart rate control wi ll be continued as well. Will check a digoxin level and again adjust it as needed. Antibiotic as p er pulmonary and internal medicine. Hemodialysis will be continued and managed as per renal team. OB stool has been ordered. Anticoagulation is not given due to his history of GI bleed and severe a nemia. We will continue with the heart rate control. Continue vent support. Dictated By: TYREL BENITES/ANA Conf#: [id number] DID#: [id number] CC: MARINO NORTH DO;*EndCC*
[2016-06-08] MEDS: LACTULOSE 30ML CUP GTB SCH (10:00)
[2016-06-08 10:27] LABS: ADD SCAN DIFF NO
[2016-06-08 10:35] LABS: ABNORMAL IP MESSAGE 1; BASOPHILS % 0.5 % (0.0-2.0); EOSINOPHILS # 0.2 10^3/ul (0.0-0.5); EOSINOPHILS % 2.8 % (0.0-7.0); HEMOGLOBIN 8.4 g/dl (14.0-18.0); LYMPHOCYTES # 0.5 10^3/ul (0.8-2.9); LYMPHOCYTES % 8.3 % (15.0-51.0); MEAN CORPUSCULAR HEMOGLOBIN 31.5 pg (29.0-33.0); MEAN CORPUSCULAR HGB CONC 31.1 g/dl (32.0-37.0); MEAN CORPUSCULAR VOLUME 101.1 fl (82.0-101.0); MEAN PLATELET VOLUME 10.5 fl (7.4-10.4); MONOCYTE # 0.5 10^3/ul (0.3-0.9); NEUTROPHIL # 5.1 10^3/ul (1.6-7.5); NEUTROPHILS % 79.9 % (39.0-77.0); PLATELET COUNT 138 10^3/UL (140-415); RED BLOOD COUNT 2.67 10^6/ul (4.70-6.10); RED CELL DISTRIBUTION WIDTH 19.4 % (11.5-14.5); WHITE BLOOD COUNT 6.4 10^3/ul (4.8-10.8)
[2016-06-08 10:49] LABS: ALBUMIN 2.6 g/dl (3.3-4.9)
[2016-06-08 10:50] LABS: PHOSPHORUS 2.3 mg/dl (2.5-4.9); POTASSIUM 3.3 mmol/L (3.5-5.1)
[2016-06-08 10:52] LABS: ALBUMIN/GLOBULIN RATIO 0.61; BILIRUBIN,INDIRECT 0.2 mg/dl (0-1.1); BILIRUBIN,TOTAL 0.2 mg/dl (0.2-1.3); CALCIUM 9.2 mg/dl (8.4-10.2); CREATININE 0.74 mg/dl (0.61-1.24); TOTAL PROTEIN 6.8 g/dl (6.1-8.1)
[2016-06-08] MEDS: CEFEPIME 1GM/50 ML (PMX) 50 ML IVPB SCH ×2 (11:33→20:23)
--- NOTE | 2016-06-08 16:10 | PN ---
DATE: 06/08/2016 SUBJECTIVE: No acute changes. The patient is alert, lying comfortably in bed. Denies pain, no fev ers. Vital signs stable. LABORATORY DATA: WBC 6.4, platelets 138, neutrophils 79.9. INDWELLINGS: Trach, PEG, right IJ PermCath. DIAGNOSTICS: Chest x-ray on admission revealed radiographic worsening congestive heart failure, and increased right larger than left pleural effusions. ANTIMICROBIALS: The patient is on: 1. Oral Levaquin. 2. IV cefepime. PHYSICAL EXAMINATION: GENERAL: Chronically ill-appearing, fragile, elderly man who is in no distress. HEENT: Head atraumatic, normocephalic. Sclerae anicteric. Buccal mucosa dry. NECK: Supple. CHEST: Rise symmetrical. Breath sounds diminished. HEART: S1, S2. ABDOMEN: Soft, bowel sounds present. EXTREMITIES: Without cyanosis. Bilateral trace edema. Multiple ecchymoses. ASSESSMENT: 1. Acute on chronic respiratory failure. 2. Healthcare-associated pneumonia. 3. Fluid overload. 4. End-stage renal disease, hemodialysis dependent. 5. History of atrial fibrillation. 6. Chronic respiratory failure. PLAN: The patient remains hemodynamically stable. Blood cultures have been negative. He has no fe vers. We will continue him on current regimen in regards to his antibiotics. Dictated By: RENE CASEY [employer] for JESÚS MAYES/ANA Conf#: [id number] DID#: [id number]
[2016-06-08] MEDS: LORAZEPAM 0.5 MG TAB GTB PRN (20:23)
[2016-06-09] VITALS (26 sets, daily range): BP systolic 89–119; BP diastolic 47–59; PULSE 80–102; RESP 14–86
[2016-06-09 07:25] LABS: ADD SCAN DIFF NO
[2016-06-09] MEDS ORDERED: POTASSIUM CHLORIDE 20 MEQ POWDER FOR ORAL SOLN GTB ONE (07:30)
[2016-06-09 07:33] LABS: BASOPHILS % 0.4 % (0.0-2.0); EOSINOPHILS # 0.2 10^3/ul (0.0-0.5); EOSINOPHILS % 2.5 % (0.0-7.0); HEMOGLOBIN 7.9 g/dl (14.0-18.0); LYMPHOCYTES # 0.6 10^3/ul (0.8-2.9); LYMPHOCYTES % 7.8 % (15.0-51.0); MEAN CORPUSCULAR HEMOGLOBIN 31.2 pg (29.0-33.0); MEAN CORPUSCULAR HGB CONC 30.4 g/dl (32.0-37.0); MEAN CORPUSCULAR VOLUME 102.8 fl (82.0-101.0); MEAN PLATELET VOLUME 11.2 fl (7.4-10.4); MONOCYTE # 0.6 10^3/ul (0.3-0.9); MONOCYTES % 7.6 % (0.0-11.0); NEUTROPHIL # 6.6 10^3/ul (1.6-7.5); NEUTROPHILS % 81.3 % (39.0-77.0); PLATELET COUNT 137 10^3/UL (140-415); RED BLOOD COUNT 2.53 10^6/ul (4.70-6.10); RED CELL DISTRIBUTION WIDTH 19.5 % (11.5-14.5); WHITE BLOOD COUNT 8.1 10^3/ul (4.8-10.8)
[2016-06-09 07:50] LABS: ALBUMIN 2.6 g/dl (3.3-4.9)
[2016-06-09 07:51] LABS: POTASSIUM 3.4 mmol/L (3.5-5.1)
[2016-06-09 07:53] LABS: ALBUMIN/GLOBULIN RATIO 0.59; BILIRUBIN,INDIRECT 0.1 mg/dl (0-1.1); BILIRUBIN,TOTAL 0.1 mg/dl (0.2-1.3); CREATININE 0.9 mg/dl (0.61-1.24)
[2016-06-09 07:55] LABS: MAGNESIUM 1.9 mg/dl (1.7-2.5); PHOSPHORUS 2.3 mg/dl (2.5-4.9)
--- NOTE | 2016-06-09 08:07 | PN ---
DATE: 06/09/2016 SUBJECTIVE: The patient yesterday had hemodialysis and tolerated it well, with approximately 3 lite rs removed. No other acute events noted. No hemoptysis, hematemesis or hematochezia. OBJECTIVE: VITAL SIGNS: Blood pressure 119/59, respirations 20, pulse 100, temperature 99.4. I's and O's were reviewed. HEENT: Head is normocephalic. NECK: Supple. HEART: Regular rate. LUNGS: Showed diminished breath sounds at the base. ABDOMEN: Soft, nontender to palpation. No rebound or guarding. Positive PEG. EXTREMITIES: Negative for clubbing or cyanosis. Positive edema. MUSCULOSKELETAL: Positive wound. DERMATOLOGIC: No rashes. MUSCULOSKELETAL: Have no joint effusion. NEUROLOGIC: No change in exam. MEDICATIONS: The patient's medications have been reviewed. LABORATORY DATA: Shows sodium 143, potassium 4.3, chloride 110, BUN 27, creatinine 0.74, phosphorus is 2.3. White count 6.4, hemoglobin 8.4, hematocrit 27.0, platelet count is 138. The patient's bl ood culture is positive for gram-positive cocci. ASSESSMENT AND PLAN: 1. Vent-dependent respiratory failure. Vent settings have been reviewed. Will continue the curren t vent settings. Follow up with pulmonary. 2. Dysphagia. Status post PEG. Continue tube feeding. 3. Acute diastolic heart failure. Continue medical management. Continue ultrafiltration dialysis. 4. End-stage renal disease. Patient will receive daily dialysis for volume removal and will have d ialysis again today, goal ultrafiltration of 2-3 liters. 5. Healthcare-associated pneumonia. Continue the current antibiotic regimen. Follow up with infec tious disease. Cultures have been reviewed, positive for gram-positive cocci. 6. Anemia of chronic disease. Continue Epogen. Iron panels were reviewed. 7. Mineral bone disorder. Continue to monitor calcium and phosphorus levels. The patient is curre ntly hypophosphatemic. Will replete with Neutra-Phos, hold phosphate binders. 8. History of hypertension. Continue to monitor. 9. Atrial fibrillation. Currently rate controlled. Continue medical management. 10. Acute on chronic encephalopathy. Etiology is toxic metabolic. Continue to monitor. 11. Decubitus wound. Continue wound care. 12. Depression and anxiety disorder. Continue Ativan and Zoloft. 13. Hypokalemia. Continue potassium repletion. 14. Diarrhea, likely from stool softeners. Will hold and monitor. 15. Gastrointestinal and deep venous thrombosis prophylaxis. Continue proton pump inhibitor and se quential leg squeezers. Dictated By: MARINO MATHUR/ANA Conf#: [id number] DID#: [id number]
[2016-06-09] MEDS: BUDESONIDE (NEB) 0.5MG/2ML AMP NEB SCH ×2 (08:51→20:00)
[2016-06-09] MEDS: BRIMONIDINE 0.15% 5 ML OPH BOTH EYES SCH ×3 (09:00→21:08)
[2016-06-09] MEDS: CEFEPIME 1GM/50 ML (PMX) 50 ML IVPB SCH (10:05)
[2016-06-09] MEDS: CHLORHEXIDINE GLUCONATE 15 ML UD CUP MM SCH ×2 (10:05→21:05)
[2016-06-09] MEDS: NEUTRA-PHOS 250 MG PACKET GTB SCH ×2 (10:05→21:06)
[2016-06-09] MEDS: MULTIVIT/CA CARB/B CMPLX/FA TAB GTB SCH (10:06)
[2016-06-09] MEDS: FERROUS SULFATE 60 MG/ML 5ML CUP GTB SCH (10:06)
[2016-06-09] MEDS: AMIODARONE 200 MG TAB GTB SCH (10:06)
[2016-06-09] MEDS: LANSOPRAZOLE 30 MG CAP GTB SCH ×2 (10:06→21:06)
[2016-06-09] MEDS: FOLIC ACID 0.4 MG TAB PO SCH (10:06)
[2016-06-09] MEDS: LEVOFLOXACIN 500 MG TAB GTB SCH (10:06)
[2016-06-09] MEDS: traMADol 50 MG TAB GTB PRN (10:06)
[2016-06-09] MEDS: CHOLECALCIFEROL 1,000 UNIT TAB GTB SCH (10:06)
[2016-06-09] MEDS: ASCORBIC ACID 250 MG TAB GTB SCH (10:07)
[2016-06-09] MEDS: CYANOCOBALAMIN 500 MCG TAB GTB SCH (10:07)
[2016-06-09] MEDS: METOPROLOL 25 MG TAB GTB SCH ×2 (10:08→21:07)
[2016-06-09] MEDS ORDERED: VANCOMYCIN IV PER PHARMACY XX SCH (10:30)
[2016-06-09] MEDS ORDERED: VANCOMYCIN 1.5 GM in SOD CHLORIDE 0.9% 250 ML IVPB ONE (12:00)
[2016-06-09] MEDS: COLLAGENASE 30 GM TUBE TOP SCH (12:26)
--- NOTE | 2016-06-09 15:35 | PN ---
DATE: 06/09/2016 SUBJECTIVE: No events overnight. The patient is lying comfortably in bed. No fevers. Blood culture from admission growing gram-positive cocci in clusters. ANTIMICROBIALS: The patient is on: 1. Vancomycin. 2. Cefepime. INDWELLINGS: Trach, PEG, right IJ PermCath. PHYSICAL EXAMINATION: GENERAL: Fragile, elderly man, in no distress. HEENT: Head atraumatic, normocephalic. Sclerae anicteric. Buccal mucosa dry. NECK: Supple. CHEST: Chest rise is symmetrical. Breath sounds diminished to the bases. HEART: S1, S2. ABDOMEN: Soft, bowel tones present. EXTREMITIES: Without cyanosis. ASSESSMENT: 1. Gram-positive cocci bacteremia, questionable contaminant. 2. Healthcare-associated pneumonia. 3. Chronic respiratory failure. 4. Atrial fibrillation. 5. End-stage renal disease, hemodialysis dependent. PLAN: The patient remains stable. Will continue him on the current antimicrobials and repeat blood cultures with next the hemodialysis from [facility]. Follow cardiology and pulmonary recommendations. Dictated By: RENE CASEY MOVER for JESÚS MAYES/ANA Conf#: [id number] DID#: [id number]
[2016-06-09] MEDS: EPOETIN 4000 UNITS/1 ML INJ (ESRD) SC SCH (18:44)
--- NOTE | 2016-06-09 19:22 | PN ---
DATE: 06/09/2016 CARDIOLOGY FOLLOWUP SUBJECTIVE: Discussed with the staff, discussed with the patient. Rhythm strip was reviewed. The patient remains in atrial fibrillation. Heart rate has been better controlled. He had dialysis don e yesterday at 3 liters were removed. Currently, breathing much better. No chest pain or pressure. No bleeding. MEDICATIONS: Reviewed. PHYSICAL EXAMINATION: VITAL SIGNS: Temperature 97.6, heart rate of 73, blood pressure 95/47, respiration rate of 80, satu rating 100%. HEENT: Normocephalic, atraumatic, cachectic gentleman. EYES: Pupils equal and round. Pupils are reactive to light. CARDIOVASCULAR: Irregularly irregular. Systolic murmur. NECK: Status post tracheostomy, on the vent. PULMONARY: With mild rhonchi, diffuse at the base. GASTROINTESTINAL: Soft, thin, nontender. No rebound or guarding. Status PEG. EXTREMITIES: With trivial edema. No cyanosis or clubbing noted. NEUROLOGIC: With multiple ecchymoses throughout the body. PSYCHIATRIC: Appears to be calm and very pleasant. LABORATORY: WBC of 8.1, hemoglobin 7.9, platelet 137. Sodium 141, potassium 3.4, BUN of 35, creati nine 0.9, glucose 133. Albumin is 2.6. ASSESSMENT AND PLAN: 1. Hypoxic respiratory failure, status post tracheostomy, vent dependent. 2. Atrial fibrillation, chronic. 3. Severe anemia and previous history of OB positive stool. 4. Pneumonia. 5. Renal failure on dialysis. 6. Electrolyte abnormality, hyperkalemia. 7. Diarrhea. 8. Chronic obstructive pulmonary disease. RECOMMENDATIONS: Hemodialysis as per Renal. We will continue with the current cardiac care. Heart rate remains stable. Digoxin can be given intermittently at a very low dose as needed if the patie nt becomes tachycardic. Otherwise, will continue to follow up monitor on telemetry. Dictated By: TYREL BENITES/ANA Conf#: [id number] DID#: [id number] CC: MARINO NORTH DO;*EndCC*
[2016-06-09] MEDS: ACETAMINOPHEN 650MG/20.3ML CUP PO PRN (21:05)
[2016-06-09] MEDS: DOXAZOSIN 1 MG TAB GTB SCH (21:06)
[2016-06-09] MEDS: SERTRALINE 50 MG TAB GTB SCH (21:07)
[2016-06-10] VITALS (24 sets, daily range): BP systolic 94–119; BP diastolic 51–58; PULSE 80–88; RESP 12–31
[2016-06-10 07:33] LABS: ADD SCAN DIFF NO
[2016-06-10 07:41] LABS: BASOPHILS % 0.3 % (0.0-2.0); EOSINOPHILS # 0.2 10^3/ul (0.0-0.5); EOSINOPHILS % 3.5 % (0.0-7.0); HEMOGLOBIN 7.5 g/dl (14.0-18.0); LYMPHOCYTES # 0.7 10^3/ul (0.8-2.9); LYMPHOCYTES % 11.2 % (15.0-51.0); MEAN CORPUSCULAR HEMOGLOBIN 31.3 pg (29.0-33.0); MEAN CORPUSCULAR VOLUME 104.2 fl (82.0-101.0); MONOCYTE # 0.5 10^3/ul (0.3-0.9); MONOCYTES % 7.5 % (0.0-11.0); NEUTROPHIL # 4.6 10^3/ul (1.6-7.5); PLATELET COUNT 120 10^3/UL (140-415); RED CELL DISTRIBUTION WIDTH 19.8 % (11.5-14.5)
[2016-06-10 07:47] LABS: CREATININE 0.78 mg/dl (0.61-1.24)
[2016-06-10 07:48] LABS: CALCIUM 8.5 mg/dl (8.4-10.2); MAGNESIUM 1.8 mg/dl (1.7-2.5); PHOSPHORUS 1.9 mg/dl (2.5-4.9)
[2016-06-10] MEDS ORDERED: POTASSIUM CHLORIDE 20 MEQ POWDER FOR ORAL SOLN GTB ONE (08:00)
[2016-06-10] MEDS: BRIMONIDINE 0.15% 5 ML OPH BOTH EYES SCH ×2 (08:38→21:12)
[2016-06-10] MEDS: MULTIVIT/CA CARB/B CMPLX/FA TAB GTB SCH (08:38)
[2016-06-10] MEDS: FERROUS SULFATE 60 MG/ML 5ML CUP GTB SCH (08:38)
[2016-06-10] MEDS: CYANOCOBALAMIN 500 MCG TAB GTB SCH (08:39)
[2016-06-10] MEDS: LANSOPRAZOLE 30 MG CAP GTB SCH ×2 (08:39→21:12)
[2016-06-10] MEDS: CHOLECALCIFEROL 1,000 UNIT TAB GTB SCH (08:39)
[2016-06-10] MEDS: METOPROLOL 25 MG TAB GTB SCH ×2 (08:40→21:14)
--- NOTE | 2016-06-10 08:40 | PN ---
DATE: 06/10/2016 SUBJECTIVE: The patient had hemodialysis yesterday, tolerated well with 3 liters removed. No other acute events noted. No hemoptysis, hematemesis or hematochezia. OBJECTIVE: VITAL SIGNS: Blood pressure is 108/56, respirations 16, pulse 74, temperature 98.0. HEENT: Head is normocephalic. NECK: Supple. HEART: Regular rate. LUNGS: Show diminished breath sounds at base. ABDOMEN: Soft, nontender to palpation. No rebound or guarding. EXTREMITIES: Negative for clubbing, cyanosis, edema. DERMATOLOGIC: No rashes. MUSCULOSKELETAL: No joint effusions. NEUROLOGIC: No change in exam. MEDICATIONS: The patient's medications have been reviewed. LABORATORY DATA: Sodium 148, potassium 3.0, chloride 110, BUN and creatinine currently pending. Wh ite count 6.0, hemoglobin 7.5, hematocrit 25.0, platelet count is 120. ASSESSMENT AND PLAN: 1. Ventilatory dependent respiratory failure: Vent settings have been reviewed. ABG has been revie wed. Continue to monitor. Follow up with pulmonary. 2. Dysphagia: Status post PEG. Continue tube feeding. 3. End-stage renal disease: The patient had hemodialysis yesterday with 3 liters removed. Anticip ate dialysis again tomorrow for ultrafiltration. 4. Acute diastolic heart failure: Continue current medical management. Continue ultrafiltration d ialysis. 5. Anemia of chronic disease: Continue to monitor H and H levels. Continue Epogen with transfuse if hemoglobin levels are below 7 grams per deciliter. 6. Healthcare-associated pneumonia: Continue current antibiotic regimen. Cultures have been revie wed. Follow up with Infectious Disease. 7. Metabolic bone disorder: Continue to monitor calcium and phosphorus levels. Continue with Neut ra-Phos. Hold phosphate binders as patient is hypophosphatemic. 8. History of hypertension: Continue to monitor. 9. Atrial fibrillation, rate controlled: Continue medical management. 10. Acute on chronic encephalopathy, toxic metabolic. Continue to monitor. 11. Decubitus wound: Continue wound care. 12. Depression and anxiety disorder: Continue Ativan and Zoloft. 13. Hyperkalemia: Continue with potassium chloride. 14. Diarrhea: Likely from stool softeners will. Continue to hold and monitor. 15. Gastrointestinal and deep venous thrombosis prophylaxis: Continue proton pump inhibitor and se quential leg squeezers. Dictated By: MARINO MATHUR/ANA Conf#: [id number] DID#: [id number]
[2016-06-10] MEDS: FOLIC ACID 0.4 MG TAB PO SCH (08:41)
[2016-06-10] MEDS: CEFEPIME 1GM/50 ML (PMX) 50 ML IVPB SCH (08:41)
[2016-06-10] MEDS: AMIODARONE 200 MG TAB GTB SCH (08:41)
[2016-06-10] MEDS: NEUTRA-PHOS 250 MG PACKET GTB SCH ×2 (08:42→21:12)
[2016-06-10] MEDS: COLLAGENASE 30 GM TUBE TOP SCH (08:43)
[2016-06-10] MEDS: CHLORHEXIDINE GLUCONATE 15 ML UD CUP MM SCH ×2 (08:43→22:36)
[2016-06-10] MEDS: ASCORBIC ACID 250 MG TAB GTB SCH (08:43)
[2016-06-10] MEDS: BUDESONIDE (NEB) 0.5MG/2ML AMP NEB SCH ×2 (09:12→20:18)
--- NOTE | 2016-06-10 20:08 | CONS ---
Date/Time of Note Date/Time of Note DATE: 06/10/16 TIME: 20:06 Assessment/Plan Assessment/Plan Chief Complaint/Hosp Course SUBJECTIVE: No events overnight. The patient is lying comfortably in bed. No fevers. Blood culture from admission growing Staph. ANTIMICROBIALS: The patient is on: 1. Vancomycin. 2. Cefepime. INDWELLINGS: Trach, PEG, right IJ PermCath. PHYSICAL EXAMINATION: GENERAL: Fragile, elderly man, in no distress. HEENT: Head atraumatic, normocephalic. Sclerae anicteric. Buccal mucosa dry. NECK: Supple. CHEST: Chest rise is symmetrical. Breath sounds diminished to the bases. HEART: S1, S2. ABDOMEN: Soft, bowel tones present. EXTREMITIES: Without cyanosis. ASSESSMENT: 1. Gram-positive cocci bacteremia, possibly contaminant, can't exclude line sepsis. 2. Healthcare-associated pneumonia. 3. Chronic respiratory failure. 4. Atrial fibrillation. 5. End-stage renal disease, hemodialysis dependent. PLAN: The patient remains stable. Repeat bld cx negative, will keep on Vanco for 2 weeks, continue Cefepime. Follow cardiology and pulmonary recommendations. DW staff Problems: Consultation Date/Type/Reason Admit Date/Time Jun 06, 2016 at 22:32 Initial Consult Date 06/07/16 Type of Consultation: ID Exam/Review of Systems Vital Signs Vitals Vital Signs Date Time Temp Pulse Resp B/P Pulse Ox O2 Delivery O2 Flow Rate FiO2 06/10/16 16:58 93 17 98 30 06/10/16 15:26 99.1 99/52 06/07/16 21:33 Mechanical Ventilator Trach Collar Intake and Output 06/09/16 06/09/16 06/10/16 15:00 23:00 07:00 Intake Total 1070 ml 560 ml Output Total 500 ml Balance 570 ml 560 ml Results Result Diagram: 06/10/16 0558 06/10/16 0558 Results 24 hrs Laboratory Tests Test 06/10/16 05:58 06/10/16 08:18 06/10/16 11:06 White Blood Count 6.0 # Red Blood Count 2.40 L Hemoglobin 7.5 L Hematocrit 25.0 L Mean Corpuscular Volume 104.2 H Mean Corpuscular Hemoglobin 31.3 Mean Corpuscular Hemoglobin Concent 30.0 L Red Cell Distribution Width 19.8 H Platelet Count 120 L Mean Platelet Volume 11.0 H Neutrophils % 77.0 Lymphocytes % 11.2 L Monocytes % 7.5 Eosinophils % 3.5 Basophils % 0.3 Nucleated Red Blood Cells % 0.0 Neutrophils # 4.6 Lymphocytes # 0.7 L Monocytes # 0.5 Eosinophils # 0.2 Basophils # 0.0 Nucleated Red Blood Cells # 0.0 Sodium Level 148 H Potassium Level 3.0 L Chloride Level 110 Carbon Dioxide Level 31 Anion Gap 10 Blood Urea Nitrogen 29 H Creatinine 0.78 Glucose Level 98 Calcium Level 8.5 Phosphorus Level 1.9 L Magnesium Level 1.8 Bedside Glucose 115 128 Medications Medications Current Medications Amiodarone HCl (Cordarone) 200 mg DAILY GTB Last administered on 06/10/16 08:41 ; Admin Dose 200 MG; Start 06/08/16 at 09:00 Ascorbic Acid (Vitamin C) 250 mg DAILY GTB Last administered on 06/10/16 08:43 ; Admin Dose 250 MG; Start 06/08/16 at 09:00 Brimonidine Tartrate (Alphagan P 0.15%) 1 drop BID BOTH EYES Last administered on 06/10/16 08:38; Admin Dose 1 DROP; Start 06/07/16 at 21:00 Chlorhexidine Gluconate (Peridex) 15 ml Q12H MM Last administered on 06/10/16 08:43; Admin Dose 15 ML; Start 06/07/16 at 10:00 Cholecalciferol (Vitamin D) 1,000 unit DAILY GTB Last administered on 06/10/16 08:39; Admin Dose 1,000 UNIT; Start 06/08/16 at 09:00 Cyanocobalamin (Vitamin B12) 1,000 mcg DAILY GTB Last administered on 06/10/16 08:39; Admin Dose 1,000 MCG; Start 06/08/16 at 09:00 Doxazosin Mesylate (Cardura) 1 mg HS GTB Last administered on 06/09/16 21:06; Admin Dose 1 MG; Start 06/07/16 at 21:00 Ferrous Sulfate (Feosol Liquid Cup) 300 mg DAILY GTB Last administered on 08:38; Admin Dose 300 MG; Start 06/08/16 at 09:00 Acetaminophen/ Hydrocodone Bitart (Lortab Liq) 15 ml Q6H PRN GTB PAIN; Start at 10:00 Albuterol/ Ipratropium (Duoneb) 3 ml Q2H PRN NEB PRN; Start 06/07/16 at 10:00 Lactulose (Enulose) 20 gm Q24H GTB Last administered on 06/07/16 11:26; Admin Dose 20 GM; Start 06/07/16 at 10:00; Status Future Hold Lansoprazole (Prevacid) 30 mg BID GTB Last administered on 06/10/16 08:39; Admin Dose 30 MG; Start 06/07/16 at 21:00 Lorazepam (Ativan) 0.5 mg Q12H PRN GTB ANXIETY Last administered on 06/08/16 20:23; Admin Dose 0.5 MG; Start 06/07/16 at 10:00 Metoprolol Tartrate (Lopressor) 12.5 mg BID GTB Last administered on 06/10/16 08:40; Admin Dose 12.5 MG; Start 06/07/16 at 21:00 Multivit/Ca Carb/ B Cmplx/FA/Prenat (Natalia-Nuno) 1 tab DAILY GTB Last administered on 06/10/16 08:38; Admin Dose 1 TAB; Start 06/08/16 at 09:00 Ondansetron HCl (Zofran Tab) 4 mg Q4H PRN GTB NAUSEA AND/OR VOMITING; Start at 10:00 Polyethylene Glycol (Miralax) 17 gm DAILY GTB Last administered on 06/08/16 08 :27; Admin Dose 17 GM; Start 06/08/16 at 09:00; Status Future Hold Sertraline HCl (Zoloft) 25 mg QHS GTB Last administered on 06/09/16 21:07; Admin Dose 25 MG; Start 06/07/16 at 21:00 Tramadol HCl (Ultram) 50 mg Q4H PRN GTB PAIN Last administered on 06/09/16 10: 06; Admin Dose 50 MG; Start 06/07/16 at 10:00 Acetaminophen (Tylenol Liquid) 650 mg Q4H PRN PO MILD PAIN LEVEL 1-3 Last administered on 06/09/16 21:05; Admin Dose 650 MG; Start 06/07/16 at 10:00 Folic Acid (Folic Acid) 0.8 mg DAILY PO Last administered on 06/10/16 08:41; Admin Dose 0.8 MG; Start 06/08/16 at 09:00 Sodium Phosphate (Neutra-Phos) 250 mg BID GTB Last administered on 06/10/16 08: 42; Admin Dose 250 MG; Start 06/09/16 at 09:00 Collagenase 1 applic 1 applic DAILY TOP Last administered on 06/10/16 08:43; Admin Dose 1 APPLIC; Start 06/09/16 at 12:00 Cefepime HCl (Maxipime 1gm/50 ml (Pmx)) 50 ml @ 100 mls/hr DAILY IVPB Last administered on 06/10/16 08:41; Admin Dose 100 MLS/HR; Start 06/10/16 at 09:00 Miscellaneous Information (*Rx Drug Level Order Reminder*) RANDOM VANCOMYCIN LEVEL ... ONCE ONCE XX ; Start 06/11/16 at 05:00; Stop 06/11/16 at 05:01 RENE CASEY NP Jun 10, 2016 20:08
[2016-06-10] MEDS: SERTRALINE 50 MG TAB GTB SCH (21:13)
[2016-06-10] MEDS: DOXAZOSIN 1 MG TAB GTB SCH (21:13)
[2016-06-11] VITALS (32 sets, daily range): BP systolic 90–125; BP diastolic 55–88; PULSE 59–95; RESP 14–24
[2016-06-11 06:37] LABS: ADD SCAN DIFF NO
[2016-06-11 06:48] LABS: BASOPHILS % 0.1 % (0.0-2.0); EOSINOPHILS # 0.2 10^3/ul (0.0-0.5); EOSINOPHILS % 2.5 % (0.0-7.0); HEMATOCRIT 24.9 % (42.0-52.0); HEMOGLOBIN 7.7 g/dl (14.0-18.0); LYMPHOCYTES # 0.7 10^3/ul (0.8-2.9); LYMPHOCYTES % 10.1 % (15.0-51.0); MEAN CORPUSCULAR HEMOGLOBIN 32.1 pg (29.0-33.0); MEAN CORPUSCULAR HGB CONC 30.9 g/dl (32.0-37.0); MEAN CORPUSCULAR VOLUME 103.8 fl (82.0-101.0); MEAN PLATELET VOLUME 10.7 fl (7.4-10.4); MONOCYTE # 0.5 10^3/ul (0.3-0.9); NEUTROPHIL # 5.7 10^3/ul (1.6-7.5); NEUTROPHILS % 79.6 % (39.0-77.0); PLATELET COUNT 117 10^3/UL (140-415); RED CELL DISTRIBUTION WIDTH 19.9 % (11.5-14.5); WHITE BLOOD COUNT 7.1 10^3/ul (4.8-10.8)
[2016-06-11 07:01] LABS: POTASSIUM 3.5 mmol/L (3.5-5.1)
[2016-06-11 07:04] LABS: CREATININE 0.89 mg/dl (0.61-1.24)
[2016-06-11 07:05] LABS: CALCIUM 8.5 mg/dl (8.4-10.2); MAGNESIUM 1.8 mg/dl (1.7-2.5); PHOSPHORUS 2.1 mg/dl (2.5-4.9)
--- NOTE | 2016-06-11 08:36 | PN ---
DATE: 06/11/2016 SUBJECTIVE: The patient is stable, no acute events overnight. The patient is scheduled for hemodia lysis today. No other events noted. OBJECTIVE: VITAL SIGNS: Blood pressure 120/88, respirations 16, pulse 90, temperature 98.0. I's and O's have been reviewed. HEENT: Head is normocephalic. NECK: Supple. HEART: Regular rate. LUNGS: Show diminished breath sounds at base. ABDOMEN: Soft, nontender to palpation without rebound or guarding. EXTREMITIES: Negative for clubbing, cyanosis. No edema. DERMATOLOGIC: No rashes. MUSCULOSKELETAL: No joint effusions. NEUROLOGIC: No change in exam. MEDICATIONS: Reviewed. LABORATORY DATA: Shows sodium 147, potassium 3.5, BUN 40, creatinine 0.89, phosphorus 2.1. White c ount 7.1, hemoglobin 7.7, hematocrit 24.9, platelet count is 117. ASSESSMENT AND PLAN: 1. Ventilator-dependent respiratory failure. The patient's vent settings have been reviewed. ABG has been reviewed. Continue to monitor. Follow up with Pulmonary. 2. Dysphagia status post PEG. Continue tube feeding. 3. End-stage renal disease. The patient will have hemodialysis today for solute clearance and volu me removal. 4. Acute diastolic heart failure. Continue current medical management. Continue ultrafiltration d ialysis. 5. Healthcare-associated pneumonia. Continue current antibiotic regimen. 6. Mineral bone disorder. Continue to monitor calcium and phosphorus levels. Continue phosphorus supplementation. 7. Hypertension. Continue to monitor. 8. Atrial fibrillation, rate controlled. Continue medical management. 9. Acute on chronic encephalopathy. Etiology is toxic metabolic. The patient's mental status appe ars to be improving. Continue to monitor. 10. Decubitus wound. Continue wound care. 11. Depression and anxiety disorder. Continue Ativan and Zoloft 12. Hypokalemia, improved. Continue to monitor. 13. Diarrhea, improving. Stool softener has been held. 14. Gastrointestinal and deep vein thrombosis prophylaxis. Continue proton pump inhibitor and sequ ential leg squeezers. Dictated By: MARINO NORTH DO NR/NTS Conf#: [id number] DID#: [id number]
[2016-06-11] MEDS: BRIMONIDINE 0.15% 5 ML OPH BOTH EYES SCH ×2 (08:49→21:14)
[2016-06-11] MEDS: COLLAGENASE 30 GM TUBE TOP SCH (08:50)
[2016-06-11] MEDS: FERROUS SULFATE 60 MG/ML 5ML CUP GTB SCH (08:50)
[2016-06-11] MEDS: METOPROLOL 25 MG TAB GTB SCH ×3 (08:51→21:14)
[2016-06-11] MEDS: AMIODARONE 200 MG TAB GTB SCH (08:51)
[2016-06-11] MEDS: ASCORBIC ACID 250 MG TAB GTB SCH (08:51)
[2016-06-11] MEDS: MULTIVIT/CA CARB/B CMPLX/FA TAB GTB SCH (08:51)
[2016-06-11] MEDS: LANSOPRAZOLE 30 MG CAP GTB SCH ×2 (08:52→21:12)
[2016-06-11] MEDS: CYANOCOBALAMIN 500 MCG TAB GTB SCH (08:52)
[2016-06-11] MEDS: NEUTRA-PHOS 250 MG PACKET GTB SCH ×2 (08:52→21:12)
[2016-06-11] MEDS: CHOLECALCIFEROL 1,000 UNIT TAB GTB SCH (08:52)
[2016-06-11] MEDS: FOLIC ACID 0.4 MG TAB PO SCH (08:52)
[2016-06-11] MEDS: CHLORHEXIDINE GLUCONATE 15 ML UD CUP MM SCH ×2 (08:57→21:11)
[2016-06-11] MEDS: CEFEPIME 1GM/50 ML (PMX) 50 ML IVPB SCH (08:57)
[2016-06-11] MEDS: BUDESONIDE (NEB) 0.5MG/2ML AMP NEB SCH ×2 (09:00→20:36)
[2016-06-11] MEDS ORDERED: VANCOMYCIN 1.25 GM in SOD CHLORIDE 0.9% 250 ML IVPB SCH (11:00)
--- NOTE | 2016-06-11 17:57 | CONS ---
Date/Time of Note Date/Time of Note DATE: 06/11/16 TIME: 17:56 Assessment/Plan Assessment/Plan Chief Complaint/Hosp Course SUBJECTIVE: No events overnight. The patient is lying comfortably in bed. No fevers. Family at bedside Blood culture from admission growing Staph. Repeat bld cx negative. ANTIMICROBIALS: 1. Vancomycin. 2. Cefepime. INDWELLINGS: Trach, PEG, right IJ PermCath. PHYSICAL EXAMINATION: GENERAL: Fragile, elderly man, in no distress. HEENT: Head atraumatic, normocephalic. Sclerae anicteric. Buccal mucosa dry. NECK: Supple. CHEST: Chest rise is symmetrical. Breath sounds diminished to the bases. HEART: S1, S2. ABDOMEN: Soft, bowel tones present. EXTREMITIES: Without cyanosis. ASSESSMENT: 1. Gram-positive cocci bacteremia, possibly contaminant, can't exclude line sepsis. 2. Healthcare-associated pneumonia. 3. Chronic respiratory failure. 4. Atrial fibrillation. 5. End-stage renal disease, hemodialysis dependent. PLAN: The patient remains stable. Repeat bld cx negative, will keep on Vanco for 2 weeks, continue Cefepime. Follow cardiology and pulmonary recommendations. DW staff Problems: Consultation Date/Type/Reason Admit Date/Time Jun 06, 2016 at 22:32 Initial Consult Date 06/07/16 Type of Consultation: ID Exam/Review of Systems Vital Signs Vitals Vital Signs Date Time Temp Pulse Resp B/P Pulse Ox O2 Delivery O2 Flow Rate FiO2 06/11/16 16:30 88 18 06/11/16 15:27 96 30 06/11/16 11:08 98.4 116/65 06/07/16 21:33 Mechanical Ventilator Trach Collar Intake and Output 06/10/16 06/10/16 06/11/16 14:59 22:59 06:59 Intake Total 700 ml Balance 700 ml Results Result Diagram: 06/11/16 0549 06/11/16 0549 Results 24 hrs Laboratory Tests Test 06/11/16 05:49 White Blood Count 7.1 Red Blood Count 2.40 L Hemoglobin 7.7 L Hematocrit 24.9 L Mean Corpuscular Volume 103.8 H Mean Corpuscular Hemoglobin 32.1 Mean Corpuscular Hemoglobin Concent 30.9 L Red Cell Distribution Width 19.9 H Platelet Count 117 L Mean Platelet Volume 10.7 H Neutrophils % 79.6 H Lymphocytes % 10.1 L Monocytes % 7.0 Eosinophils % 2.5 Basophils % 0.1 Nucleated Red Blood Cells % 0.0 Neutrophils # 5.7 Lymphocytes # 0.7 L Monocytes # 0.5 Eosinophils # 0.2 Basophils # 0.0 Nucleated Red Blood Cells # 0.0 Sodium Level 147 H Potassium Level 3.5 Chloride Level 110 Carbon Dioxide Level 28 Anion Gap 13 Blood Urea Nitrogen 40 #H Creatinine 0.89 Glucose Level 121 Calcium Level 8.5 Phosphorus Level 2.1 L Magnesium Level 1.8 Random Vancomycin Level 10.3 Medications Medications Current Medications Amiodarone HCl (Cordarone) 200 mg DAILY GTB Last administered on 06/11/16 08:51 ; Admin Dose 200 MG; Start 06/08/16 at 09:00 Ascorbic Acid (Vitamin C) 250 mg DAILY GTB Last administered on 06/11/16 08:51 ; Admin Dose 250 MG; Start 06/08/16 at 09:00 Brimonidine Tartrate (Alphagan P 0.15%) 1 drop BID BOTH EYES Last administered on 06/11/16 08:49; Admin Dose 1 DROP; Start 06/07/16 at 21:00 Chlorhexidine Gluconate (Peridex) 15 ml Q12H MM Last administered on 06/11/16 08:57; Admin Dose 15 ML; Start 06/07/16 at 10:00 Cholecalciferol (Vitamin D) 1,000 unit DAILY GTB Last administered on 06/11/16 08:52; Admin Dose 1,000 UNIT; Start 06/08/16 at 09:00 Cyanocobalamin (Vitamin B12) 1,000 mcg DAILY GTB Last administered on 06/11/16 08:52; Admin Dose 1,000 MCG; Start 06/08/16 at 09:00 Doxazosin Mesylate (Cardura) 1 mg HS GTB Last administered on 06/10/16 21:13; Admin Dose 1 MG; Start 06/07/16 at 21:00 Ferrous Sulfate (Feosol Liquid Cup) 300 mg DAILY GTB Last administered on 08:50; Admin Dose 300 MG; Start 06/08/16 at 09:00 Acetaminophen/ Hydrocodone Bitart (Lortab Liq) 15 ml Q6H PRN GTB PAIN; Start at 10:00 Albuterol/ Ipratropium (Duoneb) 3 ml Q2H PRN NEB PRN; Start 06/07/16 at 10:00 Lactulose (Enulose) 20 gm Q24H GTB Last administered on 06/07/16 11:26; Admin Dose 20 GM; Start 06/07/16 at 10:00; Status Future Hold Lansoprazole (Prevacid) 30 mg BID GTB Last administered on 06/11/16 08:52; Admin Dose 30 MG; Start 06/07/16 at 21:00 Lorazepam (Ativan) 0.5 mg Q12H PRN GTB ANXIETY Last administered on 06/08/16 20:23; Admin Dose 0.5 MG; Start 06/07/16 at 10:00 Metoprolol Tartrate (Lopressor) 12.5 mg BID GTB Last administered on 06/10/16 21:14; Admin Dose 12.5 MG; Start 06/07/16 at 21:00 Multivit/Ca Carb/ B Cmplx/FA/Prenat (Natalia-Nuno) 1 tab DAILY GTB Last administered on 06/11/16 08:51; Admin Dose 1 TAB; Start 06/08/16 at 09:00 Ondansetron HCl (Zofran Tab) 4 mg Q4H PRN GTB NAUSEA AND/OR VOMITING; Start at 10:00 Polyethylene Glycol (Miralax) 17 gm DAILY GTB Last administered on 06/08/16 08 :27; Admin Dose 17 GM; Start 06/08/16 at 09:00; Status Future Hold Sertraline HCl (Zoloft) 25 mg QHS GTB Last administered on 06/10/16 21:13; Admin Dose 25 MG; Start 06/07/16 at 21:00 Tramadol HCl (Ultram) 50 mg Q4H PRN GTB PAIN Last administered on 06/09/16 10: 06; Admin Dose 50 MG; Start 06/07/16 at 10:00 Acetaminophen (Tylenol Liquid) 650 mg Q4H PRN PO MILD PAIN LEVEL 1-3 Last administered on 06/09/16 21:05; Admin Dose 650 MG; Start 06/07/16 at 10:00 Folic Acid (Folic Acid) 0.8 mg DAILY PO Last administered on 06/11/16 08:52; Admin Dose 0.8 MG; Start 06/08/16 at 09:00 Collagenase 1 applic 1 applic DAILY TOP Last administered on 06/11/16 08:50; Admin Dose 1 APPLIC; Start 06/09/16 at 12:00 Cefepime HCl (Maxipime 1gm/50 ml (Pmx)) 50 ml @ 100 mls/hr DAILY IVPB Last administered on 06/11/16 08:57; Admin Dose 100 MLS/HR; Start 06/10/16 at 09:00 Sodium Phosphate 500 mg 500 mg BID GTB Last administered on 06/11/16 08:52; Admin Dose 500 MG; Start 06/11/16 at 09:00 Vancomycin HCl/ Sodium Chloride (Vancocin/NS) 250 ml @ 83.333 mls/ hr 11 IVPB Last administered on 06/11/16 10:41; Admin Dose 83.333 MLS/HR; Start 06/11/16 at 11:00; Stop 06/11/16 at 23:59 RENE CASEY COLLEGE DIRECTOR Jun 11, 2016 17:57
[2016-06-11] MEDS: EPOETIN 4000 UNITS/1 ML INJ (ESRD) SC SCH (19:06)
[2016-06-11] MEDS: traMADol 50 MG TAB GTB PRN (21:12)
[2016-06-11] MEDS: DOXAZOSIN 1 MG TAB GTB SCH (21:12)
[2016-06-11] MEDS: SERTRALINE 50 MG TAB GTB SCH (21:13)
[2016-06-12] VITALS (23 sets, daily range): BP systolic 93–111; BP diastolic 52–68; PULSE 79–96; RESP 14–27
[2016-06-12 07:08] LABS: ADD SCAN DIFF NO
[2016-06-12 07:20] LABS: ABNORMAL IP MESSAGE 1; BASOPHILS % 0.3 % (0.0-2.0); EOSINOPHILS # 0.3 10^3/ul (0.0-0.5); EOSINOPHILS % 3.9 % (0.0-7.0); HEMATOCRIT 24.8 % (42.0-52.0); HEMOGLOBIN 8.1 g/dl (14.0-18.0); LYMPHOCYTES # 0.8 10^3/ul (0.8-2.9); LYMPHOCYTES % 11.1 % (15.0-51.0); MEAN CORPUSCULAR HEMOGLOBIN 32.9 pg (29.0-33.0); MEAN CORPUSCULAR HGB CONC 32.7 g/dl (32.0-37.0); MEAN CORPUSCULAR VOLUME 100.8 fl (82.0-101.0); MONOCYTE # 0.5 10^3/ul (0.3-0.9); MONOCYTES % 7.6 % (0.0-11.0); NEUTROPHIL # 5.4 10^3/ul (1.6-7.5); NEUTROPHILS % 76.5 % (39.0-77.0); PLATELET COUNT 94 10^3/UL (140-415); RED BLOOD COUNT 2.46 10^6/ul (4.70-6.10); RED CELL DISTRIBUTION WIDTH 19.3 % (11.5-14.5); WHITE BLOOD COUNT 7.1 10^3/ul (4.8-10.8)
[2016-06-12 07:42] LABS: POTASSIUM 4.2 mmol/L (3.5-5.1)
[2016-06-12 07:44] LABS: CREATININE 0.68 mg/dl (0.61-1.24)
[2016-06-12 07:45] LABS: CALCIUM 7.9 mg/dl (8.4-10.2); MAGNESIUM 1.7 mg/dl (1.7-2.5); PHOSPHORUS 2.3 mg/dl (2.5-4.9)
--- NOTE | 2016-06-12 08:20 | RADRPT ---
PROCEDURE: XR Chest. CLINICAL INDICATION: Shortness of breath. TECHNIQUE: Single frontal view. COMPARISON: 06/06/2016. FINDINGS: The tracheostomy tube and right internal jugular vein tunnel dialysis catheter remain in satisfactor y position. Bilateral air space disease consistent with multifocal pneumonia or pulmonary edema is unchanged with right worse than left. The heart is enlarged. There is calcification in the aorta consistent with atherosclerosis. There is a moderate right pleural effusion and small left pleural effusion. There is no pneumothorax. IMPRESSION: 1. No change from 06/06/2016. RPTAT: QQ .Silvestre Jorge MD, MD Date Time Electronically viewed and signed by .Silvestre Jorge MD, MD on 06/12/2016 08:20 .R/
[2016-06-12] MEDS: BUDESONIDE (NEB) 0.5MG/2ML AMP NEB SCH ×2 (08:56→20:09)
[2016-06-12] MEDS: CYANOCOBALAMIN 500 MCG TAB GTB SCH (09:40)
[2016-06-12] MEDS: BRIMONIDINE 0.15% 5 ML OPH BOTH EYES SCH ×2 (09:40→21:32)
[2016-06-12] MEDS: FERROUS SULFATE 60 MG/ML 5ML CUP GTB SCH (09:41)
[2016-06-12] MEDS: LANSOPRAZOLE 30 MG CAP GTB SCH ×2 (09:43→21:29)
[2016-06-12] MEDS: NEUTRA-PHOS 250 MG PACKET GTB SCH ×2 (09:43→21:29)
[2016-06-12] MEDS: METOPROLOL 25 MG TAB GTB SCH ×2 (09:43→21:32)
[2016-06-12] MEDS: FOLIC ACID 0.4 MG TAB PO SCH (09:43)
[2016-06-12] MEDS: CHOLECALCIFEROL 1,000 UNIT TAB GTB SCH (09:43)
[2016-06-12] MEDS: MULTIVIT/CA CARB/B CMPLX/FA TAB GTB SCH (09:43)
[2016-06-12] MEDS: ASCORBIC ACID 250 MG TAB GTB SCH (09:43)
[2016-06-12] MEDS: CEFEPIME 1GM/50 ML (PMX) 50 ML IVPB SCH (09:44)
[2016-06-12] MEDS: AMIODARONE 200 MG TAB GTB SCH (09:44)
[2016-06-12] MEDS: CHLORHEXIDINE GLUCONATE 15 ML UD CUP MM SCH ×2 (10:00→21:29)
--- NOTE | 2016-06-12 11:05 | PN ---
DATE: 06/12/2016 SUBJECTIVE: The patient is stable, no acute events overnight. No fevers, chills, nausea, vomiting. OBJECTIVE: VITAL SIGNS: Blood pressure 104/61, respiratory rate 20, pulse 103, temperature 98.0. HEENT: Head is normocephalic. NECK: Supple. HEART: Regular rate. LUNGS: Show diminished breath sounds at the base. ABDOMEN: Soft, nontender to palpation. No rebound or guarding. EXTREMITIES: Negative for clubbing, cyanosis, +1 edema. DERMATOLOGIC: No rashes. MUSCULOSKELETAL: No joint effusions. NEUROLOGIC: No change in exam. MEDICATIONS: Reviewed. LABORATORY DATA: Shows sodium 135, potassium 4.2, chloride 104, BUN 36, creatinine 0.68 phosphorus 2.3. White count 7.1, hemoglobin 8.0, hematocrit 24.8, platelet count is 94. ASSESSMENT AND PLAN: 1. Ventilatory dependent respiratory failure. Vent settings reviewed, ABG is reviewed. Continue to monitor. 2. Dysphagia. Status post PEG tube, tube feeding. 3. end-stage renal disease. The patient on dialysis Sunday, Sunday, Sunday. Schedule for dialysi s today via PermCath. 4. Acute diastolic heart failure, clinically improving. Continue ultrafiltration dialysis. Follow up with cardiology. 5. Healthcare associated pneumonia. Continue current antibiotic regimen. Repeat cultures have bee n negative. 6. Mineral bone disorder. Continue to monitor calcium and phosphorus levels. Continue phosphorous s upplementation as patient is hypophosphatemic. 7. Hypertension, controlled. Continue to monitor. 8. Atrial fibrillation, rate controlled. Continue current medical management. 9. Acute on chronic encephalopathy, etiology is toxic metabolic. Mental status improved. Continue to monitor. 10. Decubitus wound. Continue wound care. 11. Depression and anxiety disorder. Continue Ativan and Zoloft. 12. Hypernatremia, improved. Continue free water flushes, decrease rate. 13. Hyperkalemia, resolved. 14. Diarrhea, improving. Continue to monitor. 15. Gastrointestinal and deep venous thrombosis prophylaxis. Continue PPI, sequential leg squeezer s. Dictated By: MARINO MATHUR/ANA Conf#: [id number] DID#: [id number]
--- NOTE | 2016-06-12 13:14 | CONS ---
Date/Time of Note Date/Time of Note DATE: 06/12/16 TIME: 13:10 Assessment/Plan Assessment/Plan Additional Assessment/Plan Ventilator settings; AC of 12, tidal volume 500, PEEP of 5, 35% FiO2. Chest x-ray was reviewed from today which is again showing extensive bilateral infiltrative changes based on all likelihood are chronic in appearance. Assessment recommendations; 1. Patient admitted for what appears to be bilateral pneumonia with significant clinical stability. 2. Likely chronic interstitial lung disease. 3. Chronic respiratory failure. 4. History of anemia. 5. History of end-stage renal disease on hemodialysis. 5. History of diabetes, hypertension, depression, atrial fibrillation. Continue current treatment. Patient can be transferred to the [facility] with continuation of current antibiotics for at least 4 more days. Consultation Date/Type/Reason Admit Date/Time Jun 06, 2016 at 22:32 Initial Consult Date 06/07/16 Type of Consultation: Pulmonary 24 HR Interval Summary Free Text/Dictation Patient condition is stable. Remains awake and alert. Remains ventilator dependent. General exam; elderly male, on ventilator via tracheostomy currently in no distress. Exam/Review of Systems Vital Signs Vitals Vital Signs Date Time Temp Pulse Resp B/P Pulse Ox O2 Delivery O2 Flow Rate FiO2 06/12/16 12:32 86 06/12/16 11:42 98.0 18 93/52 99 06/12/16 11:15 30 Intake and Output 06/11/16 06/11/16 06/12/16 15:00 23:00 07:00 Intake Total 2130 ml 540 ml Output Total 1500 ml Balance 630 ml 540 ml Exam HEENT exam is; supple neck, no JVD. No lymphadenopathy. Midline trachea. No thyromegaly. Tracheostomy in place with clean insertion site. Patient is edentulous. Has bilateral cataracts. No neck masses, no thyromegaly. Chest examination ND: Diminished but clear breath sounds. S1-S2 audible, no murmurs. Regular rhythm. Abdomen exam is; soft, nondistended. G-tube in place. Bowel sounds audible. Extremity exam is; no peripheral edema. Pulses 1+ bilaterally. There are multiple ecchymosis involving all 4 extremities. INVESTMENT OFFICER exam; no focal deficit. Results Result Diagram: 06/12/16 0655 06/12/16 0655 Results 24 hrs Laboratory Tests Test 06/12/16 06:55 White Blood Count 7.1 Red Blood Count 2.46 L Hemoglobin 8.1 L Hematocrit 24.8 L Mean Corpuscular Volume 100.8 Mean Corpuscular Hemoglobin 32.9 Mean Corpuscular Hemoglobin Concent 32.7 Red Cell Distribution Width 19.3 H Platelet Count 94 L Mean Platelet Volume 11.0 H Neutrophils % 76.5 Lymphocytes % 11.1 L Monocytes % 7.6 Eosinophils % 3.9 Basophils % 0.3 Nucleated Red Blood Cells % 0.0 Neutrophils # 5.4 Lymphocytes # 0.8 Monocytes # 0.5 Eosinophils # 0.3 Basophils # 0.0 Nucleated Red Blood Cells # 0.0 Sodium Level 135 Potassium Level 4.2 Chloride Level 104 Carbon Dioxide Level 26 Anion Gap 9 Blood Urea Nitrogen 36 H Creatinine 0.68 Glucose Level 94 Calcium Level 7.9 L Phosphorus Level 2.3 L Magnesium Level 1.7 Medications Medications Current Medications Amiodarone HCl (Cordarone) 200 mg DAILY GTB Last administered on 06/12/16 09:44 ; Admin Dose 200 MG; Start 06/08/16 at 09:00 Ascorbic Acid (Vitamin C) 250 mg DAILY GTB Last administered on 06/12/16 09:43 ; Admin Dose 250 MG; Start 06/08/16 at 09:00 Brimonidine Tartrate (Alphagan P 0.15%) 1 drop BID BOTH EYES Last administered on 06/12/16 09:40; Admin Dose 1 DROP; Start 06/07/16 at 21:00 Chlorhexidine Gluconate (Peridex) 15 ml Q12H MM Last administered on 06/11/16 21:11; Admin Dose 15 ML; Start 06/07/16 at 10:00 Cholecalciferol (Vitamin D) 1,000 unit DAILY GTB Last administered on 06/12/16 09:43; Admin Dose 1,000 UNIT; Start 06/08/16 at 09:00 Cyanocobalamin (Vitamin B12) 1,000 mcg DAILY GTB Last administered on 06/12/16 09:40; Admin Dose 1,000 MCG; Start 06/08/16 at 09:00 Doxazosin Mesylate (Cardura) 1 mg HS GTB Last administered on 06/11/16 21:12; Admin Dose 1 MG; Start 06/07/16 at 21:00 Ferrous Sulfate (Feosol Liquid Cup) 300 mg DAILY GTB Last administered on 09:41; Admin Dose 300 MG; Start 06/08/16 at 09:00 Acetaminophen/ Hydrocodone Bitart (Lortab Liq) 15 ml Q6H PRN GTB PAIN; Start at 10:00 Albuterol/ Ipratropium (Duoneb) 3 ml Q2H PRN NEB PRN; Start 06/07/16 at 10:00 Lactulose (Enulose) 20 gm Q24H GTB Last administered on 06/07/16 11:26; Admin Dose 20 GM; Start 06/07/16 at 10:00; Status Future Hold Lansoprazole (Prevacid) 30 mg BID GTB Last administered on 06/12/16 09:43; Admin Dose 30 MG; Start 06/07/16 at 21:00 Lorazepam (Ativan) 0.5 mg Q12H PRN GTB ANXIETY Last administered on 06/08/16 20:23; Admin Dose 0.5 MG; Start 06/07/16 at 10:00 Metoprolol Tartrate (Lopressor) 12.5 mg BID GTB Last administered on 06/12/16 09:43; Admin Dose 12.5 MG; Start 06/07/16 at 21:00 Multivit/Ca Carb/ B Cmplx/FA/Prenat (Natalia-Nuno) 1 tab DAILY GTB Last administered on 06/12/16 09:43; Admin Dose 1 TAB; Start 06/08/16 at 09:00 Ondansetron HCl (Zofran Tab) 4 mg Q4H PRN GTB NAUSEA AND/OR VOMITING; Start at 10:00 Polyethylene Glycol (Miralax) 17 gm DAILY GTB Last administered on 06/08/16 08 :27; Admin Dose 17 GM; Start 06/08/16 at 09:00; Status Future Hold Sertraline HCl (Zoloft) 25 mg QHS GTB Last administered on 06/11/16 21:13; Admin Dose 25 MG; Start 06/07/16 at 21:00 Tramadol HCl (Ultram) 50 mg Q4H PRN GTB PAIN Last administered on 06/11/16 21: 12; Admin Dose 50 MG; Start 06/07/16 at 10:00 Acetaminophen (Tylenol Liquid) 650 mg Q4H PRN PO MILD PAIN LEVEL 1-3 Last administered on 06/09/16 21:05; Admin Dose 650 MG; Start 06/07/16 at 10:00 Folic Acid (Folic Acid) 0.8 mg DAILY PO Last administered on 06/12/16 09:43; Admin Dose 0.8 MG; Start 06/08/16 at 09:00 Collagenase 1 applic 1 applic DAILY TOP Last administered on 06/11/16 08:50; Admin Dose 1 APPLIC; Start 06/09/16 at 12:00 Cefepime HCl (Maxipime 1gm/50 ml (Pmx)) 50 ml @ 100 mls/hr DAILY IVPB Last administered on 06/12/16 09:44; Admin Dose 100 MLS/HR; Start 06/10/16 at 09:00 Sodium Phosphate (Neutra-Phos) 500 mg BID GTB Last administered on 06/12/16 09: 43; Admin Dose 500 MG; Start 06/11/16 at 09:00 GRANT ROBERTS Jun 12, 2016 13:14
--- NOTE | 2016-06-12 14:31 | CONS ---
Date/Time of Note Date/Time of Note DATE: 06/12/16 TIME: 14:30 Assessment/Plan Assessment/Plan Chief Complaint/Hosp Course SUBJECTIVE: No events overnight. The patient is alert, lying comfortably in bed. No fevers. at bedside Blood culture from admission growing Staph. Repeat bld cx negative. ANTIMICROBIALS: 1. Vancomycin. 2. Cefepime. INDWELLINGS: Trach, PEG, right IJ PermCath. PHYSICAL EXAMINATION: GENERAL: Fragile, elderly man, in no distress. HEENT: Head atraumatic, normocephalic. Sclerae anicteric. Buccal mucosa dry. NECK: Supple. CHEST: Chest rise is symmetrical. Breath sounds diminished to the bases. HEART: S1, S2. ABDOMEN: Soft, bowel tones present. EXTREMITIES: Without cyanosis. ASSESSMENT: 1. Gram-positive cocci bacteremia, possibly contaminant, can't exclude line sepsis. 2. Healthcare-associated pneumonia. 3. Chronic respiratory failure. 4. Atrial fibrillation. 5. End-stage renal disease, hemodialysis dependent. PLAN: The patient remains stable. Will dc Cefepime, continue Vanco for 10 more days. Follow cardiology and pulmonary recommendations. [facility] staff Problems: Consultation Date/Type/Reason Admit Date/Time Jun 06, 2016 at 22:32 Initial Consult Date 06/07/16 Type of Consultation: ID Exam/Review of Systems Vital Signs Vitals Vital Signs Date Time Temp Pulse Resp B/P Pulse Ox O2 Delivery O2 Flow Rate FiO2 06/12/16 13:35 78 24 99 30 06/12/16 11:42 98.0 93/52 Intake and Output 06/11/16 06/11/16 06/12/16 15:00 23:00 07:00 Intake Total 2130 ml 540 ml Output Total 1500 ml Balance 630 ml 540 ml Results Result Diagram: 06/12/16 0655 06/12/16 0655 Results 24 hrs Laboratory Tests Test 06/12/16 06:55 White Blood Count 7.1 Red Blood Count 2.46 L Hemoglobin 8.1 L Hematocrit 24.8 L Mean Corpuscular Volume 100.8 Mean Corpuscular Hemoglobin 32.9 Mean Corpuscular Hemoglobin Concent 32.7 Red Cell Distribution Width 19.3 H Platelet Count 94 L Mean Platelet Volume 11.0 H Neutrophils % 76.5 Lymphocytes % 11.1 L Monocytes % 7.6 Eosinophils % 3.9 Basophils % 0.3 Nucleated Red Blood Cells % 0.0 Neutrophils # 5.4 Lymphocytes # 0.8 Monocytes # 0.5 Eosinophils # 0.3 Basophils # 0.0 Nucleated Red Blood Cells # 0.0 Sodium Level 135 Potassium Level 4.2 Chloride Level 104 Carbon Dioxide Level 26 Anion Gap 9 Blood Urea Nitrogen 36 H Creatinine 0.68 Glucose Level 94 Calcium Level 7.9 L Phosphorus Level 2.3 L Magnesium Level 1.7 Medications Medications Current Medications Amiodarone HCl (Cordarone) 200 mg DAILY GTB Last administered on 06/12/16 09:44 ; Admin Dose 200 MG; Start 06/08/16 at 09:00 Ascorbic Acid (Vitamin C) 250 mg DAILY GTB Last administered on 06/12/16 09:43 ; Admin Dose 250 MG; Start 06/08/16 at 09:00 Brimonidine Tartrate (Alphagan P 0.15%) 1 drop BID BOTH EYES Last administered on 06/12/16 09:40; Admin Dose 1 DROP; Start 06/07/16 at 21:00 Chlorhexidine Gluconate (Peridex) 15 ml Q12H MM Last administered on 06/11/16 21:11; Admin Dose 15 ML; Start 06/07/16 at 10:00 Cholecalciferol (Vitamin D) 1,000 unit DAILY GTB Last administered on 06/12/16 09:43; Admin Dose 1,000 UNIT; Start 06/08/16 at 09:00 Cyanocobalamin (Vitamin B12) 1,000 mcg DAILY GTB Last administered on 06/12/16 09:40; Admin Dose 1,000 MCG; Start 06/08/16 at 09:00 Doxazosin Mesylate (Cardura) 1 mg HS GTB Last administered on 06/11/16 21:12; Admin Dose 1 MG; Start 06/07/16 at 21:00 Ferrous Sulfate (Feosol Liquid Cup) 300 mg DAILY GTB Last administered on 09:41; Admin Dose 300 MG; Start 06/08/16 at 09:00 Acetaminophen/ Hydrocodone Bitart (Lortab Liq) 15 ml Q6H PRN GTB PAIN; Start at 10:00 Albuterol/ Ipratropium (Duoneb) 3 ml Q2H PRN NEB PRN; Start 06/07/16 at 10:00 Lactulose (Enulose) 20 gm Q24H GTB Last administered on 06/07/16 11:26; Admin Dose 20 GM; Start 06/07/16 at 10:00; Status Future Hold Lansoprazole (Prevacid) 30 mg BID GTB Last administered on 06/12/16 09:43; Admin Dose 30 MG; Start 06/07/16 at 21:00 Lorazepam (Ativan) 0.5 mg Q12H PRN GTB ANXIETY Last administered on 06/08/16 20:23; Admin Dose 0.5 MG; Start 06/07/16 at 10:00 Metoprolol Tartrate (Lopressor) 12.5 mg BID GTB Last administered on 06/12/16 09:43; Admin Dose 12.5 MG; Start 06/07/16 at 21:00 Multivit/Ca Carb/ B Cmplx/FA/Prenat (Natalia-Nuno) 1 tab DAILY GTB Last administered on 06/12/16 09:43; Admin Dose 1 TAB; Start 06/08/16 at 09:00 Ondansetron HCl (Zofran Tab) 4 mg Q4H PRN GTB NAUSEA AND/OR VOMITING; Start at 10:00 Polyethylene Glycol (Miralax) 17 gm DAILY GTB Last administered on 06/08/16 08 :27; Admin Dose 17 GM; Start 06/08/16 at 09:00; Status Future Hold Sertraline HCl (Zoloft) 25 mg QHS GTB Last administered on 06/11/16 21:13; Admin Dose 25 MG; Start 06/07/16 at 21:00 Tramadol HCl (Ultram) 50 mg Q4H PRN GTB PAIN Last administered on 06/11/16 21: 12; Admin Dose 50 MG; Start 06/07/16 at 10:00 Acetaminophen (Tylenol Liquid) 650 mg Q4H PRN PO MILD PAIN LEVEL 1-3 Last administered on 06/09/16 21:05; Admin Dose 650 MG; Start 06/07/16 at 10:00 Folic Acid (Folic Acid) 0.8 mg DAILY PO Last administered on 06/12/16 09:43; Admin Dose 0.8 MG; Start 06/08/16 at 09:00 Collagenase 1 applic 1 applic DAILY TOP Last administered on 06/11/16 08:50; Admin Dose 1 APPLIC; Start 06/09/16 at 12:00 Cefepime HCl (Maxipime 1gm/50 ml (Pmx)) 50 ml @ 100 mls/hr DAILY IVPB Last administered on 06/12/16 09:44; Admin Dose 100 MLS/HR; Start 06/10/16 at 09:00 Sodium Phosphate (Neutra-Phos) 500 mg BID GTB Last administered on 06/12/16 09: 43; Admin Dose 500 MG; Start 06/11/16 at 09:00 RENE CASEY NP Jun 12, 2016 14:31
[2016-06-12] MEDS: ACETAMINOPHEN 650MG/20.3ML CUP PO PRN (16:02)
[2016-06-12] MEDS: COLLAGENASE 30 GM TUBE TOP SCH (16:52)
[2016-06-12] MEDS: DOXAZOSIN 1 MG TAB GTB SCH (21:31)
[2016-06-12] MEDS: SERTRALINE 50 MG TAB GTB SCH (21:31)
[2016-06-12] MEDS: LORAZEPAM 0.5 MG TAB GTB PRN (22:04)
--- NOTE | 2016-06-12 23:57 | PN ---
DATE: 06/12/2016 CARDIOLOGY FOLLOWUP SUBJECTIVE: Discussed with the staff. Discussed with the patient's . The patient remains in a trial fibrillation. Heart has remained stable. No chest pain or pressure. Complains of secretions . MEDICATIONS: Reviewed. PHYSICAL EXAMINATION: VITAL SIGNS: Temperature 98.6, heart rate of 96, blood pressure 102/59, respiratory rate of 14, sat urating 98%. HEENT: Normocephalic, atraumatic. Elderly, thin gentleman. NECK: Status post tracheostomy on the vent. EYES: Pupils are equal and round. CARDIOVASCULAR: Irregularly irregular. Systolic murmur. PULMONARY: With mild rhonchi, diffuse. GASTROINTESTINAL: Soft, nontender. No rebound or guarding. EXTREMITIES: With positive ankle edema. NEUROLOGIC: Awake. Responds appropriately. PSYCHIATRIC: Appeared to be calm and pleasant. DERMATOLOGIC: There is diffuse ecchymosis throughout the body noted. LABORATORY: WBC of 7.1, hemoglobin 8.1, platelets of 94. Sodium 135, potassium 4.2, BUN of 36, cre atinine 0.68, glucose of 94. Mag is 1.7. ASSESSMENT AND PLAN: 1. Hypoxic respiratory failure, status post tracheostomy, ventilator dependent. 2. Atrial fibrillation, chronic. 3. Renal failure, status post hemodialysis. 4. Fluid overload/congestive heart failure secondary to diastolic dysfunction. 5. Pneumonia, status post antibiotic. 6. History of hypertension, currently hypotensive. Stable. 7. Multiple wounds. 8. Depression and anxiety. 9. Electrolyte abnormalities with hypernatremia, and hyperkalemia. RECOMMENDATIONS: Electrolytes will be corrected as needed. Dialysis as per renal. Anticoagulation is on hold due to severe anemia. I will discontinue the amiodarone since the patient is, at this p oint, in AFib chronically. Heart rate control will be continued. Vent support will be continued. Antibiotic as per ID's recommendation. Dictated By: TYREL RODRIGUEZ MD AV/ANA Conf#: [id number] DID#: [id number] CC: SYLVIA COSME MD; MARINO NORTH DO;*EndCC*
[2016-06-13] VITALS (30 sets, daily range): BP systolic 95–118; BP diastolic 44–64; PULSE 80–110; RESP 15–30
[2016-06-13 06:30] LABS: ADD SCAN DIFF NO
[2016-06-13 06:37] LABS: BASOPHILS % 0.4 % (0.0-2.0); EOSINOPHILS # 0.3 10^3/ul (0.0-0.5); EOSINOPHILS % 3.2 % (0.0-7.0); HEMATOCRIT 26.4 % (42.0-52.0); HEMOGLOBIN 8.1 g/dl (14.0-18.0); LYMPHOCYTES # 0.8 10^3/ul (0.8-2.9); LYMPHOCYTES % 9.6 % (15.0-51.0); MEAN CORPUSCULAR HEMOGLOBIN 30.8 pg (29.0-33.0); MEAN CORPUSCULAR HGB CONC 30.7 g/dl (32.0-37.0); MEAN CORPUSCULAR VOLUME 100.4 fl (82.0-101.0); MEAN PLATELET VOLUME 10.9 fl (7.4-10.4); MONOCYTE # 0.5 10^3/ul (0.3-0.9); MONOCYTES % 5.8 % (0.0-11.0); NEUTROPHIL # 6.3 10^3/ul (1.6-7.5); NEUTROPHILS % 80.4 % (39.0-77.0); PLATELET COUNT 101 10^3/UL (140-415); RED BLOOD COUNT 2.63 10^6/ul (4.70-6.10); RED CELL DISTRIBUTION WIDTH 19.6 % (11.5-14.5); WHITE BLOOD COUNT 7.9 10^3/ul (4.8-10.8)
[2016-06-13] MEDS: BUDESONIDE (NEB) 0.5MG/2ML AMP NEB SCH ×2 (09:00→20:00)
[2016-06-13] MEDS: COLLAGENASE 30 GM TUBE TOP SCH (09:00)
[2016-06-13 09:22] LABS: POTASSIUM 3.7 mmol/L (3.5-5.1)
[2016-06-13 09:24] LABS: CREATININE 0.84 mg/dl (0.61-1.24)
[2016-06-13 09:25] LABS: PHOSPHORUS 3.4 mg/dl (2.5-4.9)
[2016-06-13 09:26] LABS: CALCIUM 8.1 mg/dl (8.4-10.2); MAGNESIUM 1.7 mg/dl (1.7-2.5)
[2016-06-13] MEDS: CHLORHEXIDINE GLUCONATE 15 ML UD CUP MM SCH ×2 (10:00→15:17)
--- NOTE | 2016-06-13 10:02 | DS ---
DATE OF ADMISSION: 06/06/2016 DATE OF DISCHARGE: HOSPITAL COURSE: This is an 85-year-old male with a past medical history of ventilator-dependent re spiratory failure, history of end-stage renal disease, history of hypertension, BPH, CHF, coronary a rtery disease, atrial fibrillation, who [facility] due to progressive shortness of breath over the last 2 to 3 days. Patient resides at [facility] and was noted to be on ongoing treatment for aspiration pneumonia, when he clinically d ecompensated. As a result, he came to [facility]. Upon arrival, patient was note d to be in decompensated heart failure. He was also noted to have ongoing infiltrates, consistent w ith pneumonia. The patient was admitted to telemetry. In terms of the patient's evaluation, he was seen by tool and machine maintainer, Dr. St. Patient also received daily dialysis for volume removal. The patient clinically improved as his pulmonary congestion and edema improved with aggressive dialy sis. Additionally, the patient was seen by Dr. Mcgrath and was placed on antibiotic therapy. Freddy hawthorne's initial blood cultures were positive. Repeat cultures have been negative. The patient will con tinue current antibiotic regimen for another 4 days, completing a 14-day course. The patient's other medical problems, including acute encephalopathy on admission, improved. The pa lisant also noted to be in atrial fibrillation, hypertensive, has mineral bone disorder, anemia. Tho se were stable during the hospital course. The patient also had a decubitus wound and was receiving wound care during the hospital course. Currently, at this time the patient is stable, in no acute distress. He will be transferred back to a assisted facility where he will continue IV antib iotics and continue outpatient hemodialysis. FINAL DIAGNOSES: 1. Ventilator-dependent respiratory failure. 2. Dysphagia, status post percutaneous endoscopic gastrostomy. 3. End-stage renal disease. 4. Acute diastolic heart failure, clinically improving. 5. Healthcare-associated pneumonia. 6. Mineral bone disorder. 7. Hypertension. 8. Atrial fibrillation. 9. Acute on chronic encephalopathy. Etiology is toxic metabolic. 10. Decubitus wound. 11. Electrolyte abnormalities. 12. Diarrhea, resolved. FINAL MEDICATIONS: See reconciliation list. Please note, I spent over 40 minutes of time preparing the patient's discharge. I discussed the niall e with the patient's , who agrees with the plan. Dictated By: MARINO MATHUR/ANA Conf#: [id number] DID#: [id number]
[2016-06-13] MEDS: BRIMONIDINE 0.15% 5 ML OPH BOTH EYES SCH (10:45)
[2016-06-13] MEDS: CYANOCOBALAMIN 500 MCG TAB GTB SCH (10:46)
[2016-06-13] MEDS: FERROUS SULFATE 60 MG/ML 5ML CUP GTB SCH (10:46)
[2016-06-13] MEDS: ASCORBIC ACID 250 MG TAB GTB SCH (10:46)
[2016-06-13] MEDS: MULTIVIT/CA CARB/B CMPLX/FA TAB GTB SCH (10:46)
[2016-06-13] MEDS: CHOLECALCIFEROL 1,000 UNIT TAB GTB SCH (10:46)
[2016-06-13] MEDS: LANSOPRAZOLE 30 MG CAP GTB SCH (10:46)
[2016-06-13] MEDS: FOLIC ACID 0.4 MG TAB PO SCH (10:46)
[2016-06-13] MEDS: NEUTRA-PHOS 250 MG PACKET GTB SCH (10:48)
[2016-06-13] MEDS: METOPROLOL 25 MG TAB GTB SCH (10:48)
--- NOTE | 2016-06-13 13:02 | CONS ---
Date/Time of Note Date/Time of Note DATE: 06/13/16 TIME: 13:01 Assessment/Plan Assessment/Plan Chief Complaint/Hosp Course SUBJECTIVE: No events overnight. The patient is alert, in HD, lying comfortably in bed. No fevers. Blood culture from admission growing Staph. Repeat bld cx negative. ANTIMICROBIALS: 1. Vancomycin. INDWELLINGS: Trach, PEG, right IJ PermCath. PHYSICAL EXAMINATION: GENERAL: Fragile, elderly man, in no distress. HEENT: Head atraumatic, normocephalic. Sclerae anicteric. Buccal mucosa dry. NECK: Supple. CHEST: Chest rise is symmetrical. Breath sounds diminished to the bases. HEART: S1, S2. ABDOMEN: Soft, bowel tones present. EXTREMITIES: Without cyanosis. ASSESSMENT: 1. Gram-positive cocci bacteremia, possibly contaminant, can't exclude line sepsis. 2. Healthcare-associated pneumonia. 3. Chronic respiratory failure. 4. Atrial fibrillation. 5. End-stage renal disease, hemodialysis dependent. PLAN: The patient remains stable. Continue Vanco for 9 more days. Follow cardiology and pulmonary recommendations. [facility] staff Problems: Consultation Date/Type/Reason Admit Date/Time Jun 06, 2016 at 22:32 Initial Consult Date 06/07/16 Type of Consultation: ID Exam/Review of Systems Vital Signs Vitals Vital Signs Date Time Temp Pulse Resp B/P Pulse Ox O2 Delivery O2 Flow Rate FiO2 06/13/16 09:00 93 16 98 30 06/13/16 07:49 98.9 99/57 Intake and Output 06/12/16 06/12/16 06/13/16 15:00 23:00 07:00 Intake Total 660 ml 680 ml Balance 660 ml 680 ml Results Result Diagram: 06/13/16 0545 06/13/16 0545 Results 24 hrs Laboratory Tests Test 06/13/16 05:45 White Blood Count 7.9 Red Blood Count 2.63 L Hemoglobin 8.1 L Hematocrit 26.4 L Mean Corpuscular Volume 100.4 Mean Corpuscular Hemoglobin 30.8 Mean Corpuscular Hemoglobin Concent 30.7 L Red Cell Distribution Width 19.6 H Platelet Count 101 L Mean Platelet Volume 10.9 H Neutrophils % 80.4 H Lymphocytes % 9.6 L Monocytes % 5.8 Eosinophils % 3.2 Basophils % 0.4 Nucleated Red Blood Cells % 0.0 Neutrophils # 6.3 Lymphocytes # 0.8 Monocytes # 0.5 Eosinophils # 0.3 Basophils # 0.0 Nucleated Red Blood Cells # 0.0 Sodium Level 138 Potassium Level 3.7 Chloride Level 101 Carbon Dioxide Level 27 Anion Gap 14 Blood Urea Nitrogen 47 #H Creatinine 0.84 Glucose Level 104 Calcium Level 8.1 L Phosphorus Level 3.4 Magnesium Level 1.7 Medications Medications Current Medications Ascorbic Acid (Vitamin C) 250 mg DAILY GTB Last administered on 06/13/16 10:46 ; Admin Dose 250 MG; Start 06/08/16 at 09:00 Brimonidine Tartrate (Alphagan P 0.15%) 1 drop BID BOTH EYES Last administered on 06/13/16 10:45; Admin Dose 1 DROP; Start 06/07/16 at 21:00 Chlorhexidine Gluconate (Peridex) 15 ml Q12H MM Last administered on 06/12/16 21:29; Admin Dose 15 ML; Start 06/07/16 at 10:00 Cholecalciferol (Vitamin D) 1,000 unit DAILY GTB Last administered on 06/13/16 10:46; Admin Dose 1,000 UNIT; Start 06/08/16 at 09:00 Cyanocobalamin (Vitamin B12) 1,000 mcg DAILY GTB Last administered on 06/13/16 10:46; Admin Dose 1,000 MCG; Start 06/08/16 at 09:00 Doxazosin Mesylate (Cardura) 1 mg HS GTB Last administered on 06/12/16 21:31; Admin Dose 1 MG; Start 06/07/16 at 21:00 Ferrous Sulfate (Feosol Liquid Cup) 300 mg DAILY GTB Last administered on 10:46; Admin Dose 300 MG; Start 06/08/16 at 09:00 Acetaminophen/ Hydrocodone Bitart (Lortab Liq) 15 ml Q6H PRN GTB PAIN; Start at 10:00 Albuterol/ Ipratropium (Duoneb) 3 ml Q2H PRN NEB PRN; Start 06/07/16 at 10:00 Lactulose (Enulose) 20 gm Q24H GTB Last administered on 06/07/16 11:26; Admin Dose 20 GM; Start 06/07/16 at 10:00; Status Future Hold Lansoprazole (Prevacid) 30 mg BID GTB Last administered on 06/13/16 10:46; Admin Dose 30 MG; Start 06/07/16 at 21:00 Lorazepam (Ativan) 0.5 mg Q12H PRN GTB ANXIETY Last administered on 06/12/16 22 :04; Admin Dose 0.5 MG; Start 06/07/16 at 10:00 Metoprolol Tartrate (Lopressor) 12.5 mg BID GTB Last administered on 06/13/16 10:48; Admin Dose 12.5 MG; Start 06/07/16 at 21:00 Multivit/Ca Carb/ B Cmplx/FA/Prenat (Natalia-Nuno) 1 tab DAILY GTB Last administered on 06/13/16 10:46; Admin Dose 1 TAB; Start 06/08/16 at 09:00 Ondansetron HCl (Zofran Tab) 4 mg Q4H PRN GTB NAUSEA AND/OR VOMITING; Start at 10:00 Polyethylene Glycol (Miralax) 17 gm DAILY GTB Last administered on 06/08/16 08 :27; Admin Dose 17 GM; Start 06/08/16 at 09:00; Status Future Hold Sertraline HCl (Zoloft) 25 mg QHS GTB Last administered on 06/12/16 21:31; Admin Dose 25 MG; Start 06/07/16 at 21:00 Tramadol HCl (Ultram) 50 mg Q4H PRN GTB PAIN Last administered on 06/11/16 21: 12; Admin Dose 50 MG; Start 06/07/16 at 10:00 Acetaminophen (Tylenol Liquid) 650 mg Q4H PRN PO MILD PAIN LEVEL 1-3 Last administered on 06/12/16 16:02; Admin Dose 650 MG; Start 06/07/16 at 10:00 Folic Acid (Folic Acid) 0.8 mg DAILY PO Last administered on 06/13/16 10:46; Admin Dose 0.8 MG; Start 06/08/16 at 09:00 Collagenase (Santyl) 1 applic DAILY TOP Last administered on 06/12/16 16:52; Admin Dose 1 APPLIC; Start 06/09/16 at 12:00 Sodium Phosphate (Neutra-Phos) 500 mg BID GTB Last administered on 06/13/16t 10: 48; Admin Dose 500 MG; Start 06/11/16 at 09:00 Miscellaneous Information (*Rx Drug Level Order Reminder*) 1 ONCE ONCE XX ; Start 06/14/16 at 05:00; Stop 06/14/16 at 05:01 RENE CASEY NP Jun 13, 2016 13:02
--- NOTE | 2016-06-13 16:52 | PN ---
DATE: 06/13/2016 CARDIOLOGY FOLLOWUP SUBJECTIVE: Discussed with the staff, discussed with the patient's . Rhythm strip was reviewed . The patient remains in atrial fibrillation. Heart rate has remained overall stable. He denies a ny chest pain or pressure. He had some secretions, but appeared to be improving today. He denies a ny palpitation, denies any active bleeding to me. MEDICATIONS: Reviewed as per medication reconciliation, personally reviewed. PHYSICAL EXAMINATION: VITAL SIGNS: Temperature 98.4, heart rate of 89, blood pressure 100/60, respiratory rate of 20. Sa turating 98% on 30% oxygen. HEENT: Normocephalic, atraumatic. Thin elderly gentleman. No acute distress. Eyes: Pupils equal and round. NECK: Supple, tracheostomy, on the vent. CARDIOVASCULAR: Irregularly irregular, systolic murmur. PULMONARY: With mild rhonchi, diffuse. GASTROINTESTINAL: Soft, nontender. EXTREMITIES: Trivial edema of lower extremities. There are multiple ecchymoses. PSYCHIATRIC: Appears to be calm and pleasant. NEUROLOGIC: Awake and alert. Responds appropriately, moving all extremities. LABORATORY DATA: WBC of 7.9, hemoglobin 8.1, platelets of 101. Sodium 138, potassium 3.7, BUN of 4 7, creatinine 0.84, glucose 104. ASSESSMENT AND PLAN: 1. Hypoxemic respiratory failure, status post tracheostomy, ventilator-dependent. 2. Atrial fibrillation, chronic, on heart rate control only. 3. Renal failure, on dialysis. 4. Fluid overload and congestive heart failure secondary to above and diastolic dysfunction, curren tly stable and treated with fluid removal with dialysis. 5. Pneumonia. 6. History of hypertension, currently hypotensive but stable. 7. History of multiple decubitus wounds. 8. Depression and anxiety. 9. Electrolyte abnormality including hypernatremia and hypokalemia. RECOMMENDATIONS: Electrolytes including potassium and magnesium will be replaced as needed. Hemodi alysis as per renal will be continued. We will continue to monitor on telemetry, heart rate has rem ained stable. Antibiotics will be managed as per ID's recommendation. I have discontinued amiodaro ne since the patient continues to be in atrial fibrillation. So far, the heart rate has remained st able but if it becomes elevated, we will give a dose of digoxin as well. Dictated By: TYREL RODRIGUEZ MD AV/ANA Conf#: [id number] DID#: [id number] CC: MARINO NORTH DO;*End*
[2016-06-13] MEDS: EPOETIN 4000 UNITS/1 ML INJ (ESRD) SC SCH (18:08)
== END 2016-06-13 22:25 | DRG 207 ==
LOC: E/R 20:09 → TEL 22:32
PROVIDERS: ADMIT Internal Medicine; ATTEND Internal Medicine
PROC: 5A1955Z Respiratory Ventilation, Greater than 96 Consecutive Hours (ICD-10-PCS; principal; 2016-06-06)
PROC: 5A1D60Z (ICD-10-PCS; 2016-06-06)
DX: J18.9 Pneumonia, unspecified organism (principal); G92 Toxic encephalopathy; I50.33 Acute on chronic diastolic (congestive) heart failure; L89.153 Pressure ulcer of sacral region, stage 3; R13.10 Dysphagia, unspecified; N18.6 End stage renal disease; J96.11 Chronic respiratory failure with hypoxia; E46 Unspecified protein-calorie malnutrition; I48.1 Persistent atrial fibrillation; Z99.11 Dependence on respirator [ventilator] status; I13.2 Hypertensive heart and chronic kidney disease with heart failure and with stage 5 chronic kidney disease, or end stage renal disease; Z93.0 Tracheostomy status; I48.2 Chronic atrial fibrillation; Z93.1 Gastrostomy status; J44.9 Chronic obstructive pulmonary disease, unspecified; Z87.19 Personal history of other diseases of the digestive system; Z87.891 Personal history of nicotine dependence; D64.9 Anemia, unspecified; Z68.25 Body mass index [BMI] 25.0-25.9, adult; F41.9 Anxiety disorder, unspecified; N40.0 Benign prostatic hyperplasia without lower urinary tract symptoms; Z99.2 Dependence on renal dialysis; E83.89 Other disorders of mineral metabolism; E87.6 Hypokalemia; F32.9 Major depressive disorder, single episode, unspecified; R19.7 Diarrhea, unspecified; Y95 Nosocomial condition
CPT/HCPCS: 36415; 71010; 80048; 80053; 80162; 80202; 82728; 82962; 83540; 83605; 83735; 83880; 84100; 85025; 86900; 86901; 87040; 87081; 90935; 94002; 94003; 94640; 94664; 96374; J0692; J0886; J3370; J7050